=== PATIENT | female | born 1960 | race Caucasian/White ===

== ENCOUNTER → 2022-06-13 14:55 | Outpatient (BNVA) | payer OTHER, SELFPAY | PROVIDERS: PCP Student in an Organized Health Care Education/Training Program; Visit Provider Nurse Practitioner Family | DX: M47.816 Spondylosis without myelopathy or radiculopathy, lumbar region (principal); M54.16 Radiculopathy, lumbar region; M53.3 Sacrococcygeal disorders, not elsewhere classified; M54.6 Pain in thoracic spine; M79.7 Fibromyalgia; G89.4 Chronic pain syndrome | CPT/HCPCS: 99202 ==

== ENCOUNTER 2022-06-22 14:56 | Outpatient (REF) | payer OTHER, SELFPAY ==
--- NOTE | ~2022-06-22 | XR_ITS ---
EXAMINATION: XR THORACIC SPINE CLINICAL INFORMATION: Thoracic spine pain. COMPARISON: None TECHNIQUE: Frontal, lateral and swimmer's views of the thoracic spine were obtained. FINDINGS: Vertebral body heights are normal. There is a mild thoracolumbar dextroscoliosis. The thoracic disc spaces are well-maintained. No acute fracture or spondylolisthesis is seen. There is multi-level mild thoracic spondylosis. The posterior elements are intact. The paravertebral soft tissues are unremarkable. XR/XR sacroiliac joint min 3V IMPRESSION: 1. There is a mild thoracolumbar levoscoliosis. 2. The thoracic disc spaces are well-maintained. 3. There is multi-level mild thoracic spondylosis. EXAMINATION: XR LUMBOSACRAL SPINE CLINICAL INFORMATION: Lumbar spondylosis without myelopathy or radiculopathy. COMPARISON: None TECHNIQUE: AP, bilateral oblique and lateral views of the lumbar spine were obtained, together with a spot lateral view the lumbosacral junction. Lateral views were obtained in flexion, extension, and neutral positions. FINDINGS: Vertebral body heights are normal. At L5-S1, there is a 1.4 cm anterolisthesis, which is stable with flexion or extension. There is a bilateral L5 spondylolysis defect. The remaining disc spaces are well-maintained. The paravertebral soft tissues are unremarkable. IMPRESSION: At L5-S1, there is a 1.4 cm, grade 1 anterolisthesis, and a bilateral L5 spondylolysis defect is seen. EXAMINATION: XR SACROILIAC JOINTS CLINICAL INFORMATION: Sacrococcygeal disorders, not elsewhere classified. COMPARISON: None TECHNIQUE: AP and bilateral Judet views of the sacroiliac joints FINDINGS: Bones and soft tissues are normal. No fracture. Alignment is anatomic. Sacroiliac joint spaces are well-maintained without erosions or surrounding sclerosis. IMPRESSION: Normal sacroiliac joints.
--- NOTE | ~2022-06-22 | XR_ITS ---
EXAMINATION: XR THORACIC SPINE CLINICAL INFORMATION: Thoracic spine pain. COMPARISON: None TECHNIQUE: Frontal, lateral and swimmer's views of the thoracic spine were obtained. FINDINGS: Vertebral body heights are normal. There is a mild thoracolumbar dextroscoliosis. The thoracic disc spaces are well-maintained. No acute fracture or spondylolisthesis is seen. There is multi-level mild thoracic spondylosis. The posterior elements are intact. The paravertebral soft tissues are unremarkable. XR/XR thoracic spine 2V IMPRESSION: 1. There is a mild thoracolumbar levoscoliosis. 2. The thoracic disc spaces are well-maintained. 3. There is multi-level mild thoracic spondylosis. EXAMINATION: XR LUMBOSACRAL SPINE CLINICAL INFORMATION: Lumbar spondylosis without myelopathy or radiculopathy. COMPARISON: None TECHNIQUE: AP, bilateral oblique and lateral views of the lumbar spine were obtained, together with a spot lateral view the lumbosacral junction. Lateral views were obtained in flexion, extension, and neutral positions. FINDINGS: Vertebral body heights are normal. At L5-S1, there is a 1.4 cm anterolisthesis, which is stable with flexion or extension. There is a bilateral L5 spondylolysis defect. The remaining disc spaces are well-maintained. The paravertebral soft tissues are unremarkable. IMPRESSION: At L5-S1, there is a 1.4 cm, grade 1 anterolisthesis, and a bilateral L5 spondylolysis defect is seen. EXAMINATION: XR SACROILIAC JOINTS CLINICAL INFORMATION: Sacrococcygeal disorders, not elsewhere classified. COMPARISON: None TECHNIQUE: AP and bilateral Judet views of the sacroiliac joints FINDINGS: Bones and soft tissues are normal. No fracture. Alignment is anatomic. Sacroiliac joint spaces are well-maintained without erosions or surrounding sclerosis. IMPRESSION: Normal sacroiliac joints.
--- NOTE | ~2022-06-22 | XR_ITS ---
EXAMINATION: XR THORACIC SPINE CLINICAL INFORMATION: Thoracic spine pain. COMPARISON: None TECHNIQUE: Frontal, lateral and swimmer's views of the thoracic spine were obtained. FINDINGS: Vertebral body heights are normal. There is a mild thoracolumbar dextroscoliosis. The thoracic disc spaces are well-maintained. No acute fracture or spondylolisthesis is seen. There is multi-level mild thoracic spondylosis. The posterior elements are intact. The paravertebral soft tissues are unremarkable. XR/XR lumbar spine 6V w bending IMPRESSION: 1. There is a mild thoracolumbar levoscoliosis. 2. The thoracic disc spaces are well-maintained. 3. There is multi-level mild thoracic spondylosis. EXAMINATION: XR LUMBOSACRAL SPINE CLINICAL INFORMATION: Lumbar spondylosis without myelopathy or radiculopathy. COMPARISON: None TECHNIQUE: AP, bilateral oblique and lateral views of the lumbar spine were obtained, together with a spot lateral view the lumbosacral junction. Lateral views were obtained in flexion, extension, and neutral positions. FINDINGS: Vertebral body heights are normal. At L5-S1, there is a 1.4 cm anterolisthesis, which is stable with flexion or extension. There is a bilateral L5 spondylolysis defect. The remaining disc spaces are well-maintained. The paravertebral soft tissues are unremarkable. IMPRESSION: At L5-S1, there is a 1.4 cm, grade 1 anterolisthesis, and a bilateral L5 spondylolysis defect is seen. EXAMINATION: XR SACROILIAC JOINTS CLINICAL INFORMATION: Sacrococcygeal disorders, not elsewhere classified. COMPARISON: None TECHNIQUE: AP and bilateral Judet views of the sacroiliac joints FINDINGS: Bones and soft tissues are normal. No fracture. Alignment is anatomic. Sacroiliac joint spaces are well-maintained without erosions or surrounding sclerosis. IMPRESSION: Normal sacroiliac joints.
== END 2022-06-22 14:57 | disposition home or self-care (01) ==
LOC: HO.XRAY 14:56
PROVIDERS: Visit Provider Nurse Practitioner Family
DX: M53.3 Sacrococcygeal disorders, not elsewhere classified (principal); M54.6 Pain in thoracic spine; M47.816 Spondylosis without myelopathy or radiculopathy, lumbar region; G89.4 Chronic pain syndrome; M54.16 Radiculopathy, lumbar region
CPT/HCPCS: 72070; 72114; 72202

== ENCOUNTER → 2022-07-14 14:34 | Outpatient (BNVA) | payer OTHER, SELFPAY | PROVIDERS: PCP Student in an Organized Health Care Education/Training Program; Visit Provider Nurse Practitioner Family | DX: Z13.89 Encounter for screening for other disorder (principal) ==

== ENCOUNTER → 2022-09-14 14:50 | Outpatient (BNVA) | payer OTHER, SELFPAY | PROVIDERS: PCP Student in an Organized Health Care Education/Training Program; Visit Provider Nurse Practitioner Family | DX: M79.7 Fibromyalgia (principal); M47.816 Spondylosis without myelopathy or radiculopathy, lumbar region; G89.4 Chronic pain syndrome; M54.6 Pain in thoracic spine; M53.3 Sacrococcygeal disorders, not elsewhere classified | CPT/HCPCS: 99212 ==

== ENCOUNTER 2024-04-29 14:09 | Outpatient (AMB) | payer OTHER, SELFPAY ==
[2024-04-29 14:11] VITALS: BP 118/78; PULSE 73; O2SAT 98; BMI 20.8
--- NOTE | 2024-04-29 14:11 | MHC.OFFVIS ---
Vital Signs 04/29/24 14:11 Height 4 ft 11 in Weight 103 lb 2.821 oz BMI 20.8 BP 118/78 Blood Pressure Location Lt brachial Position Sitting Pulse 73 Pulse Source Pulse Oximeter Pulse Oximetry (%) 98 Oxygen Delivery Method Room Air Intake Visit Reasons: DJD/CM APT Intake Note: Patient presents with DJD, externally referred by PCP Nishant Baptiste MD. Patient states right arm pain which travels down arm and back, she states it started on Sunday, painful when she touches or reaches for things, she also states that she has been losing sleep due to the pain. She is also complaining of joint pain in her hips. Patient is requesting a letter for home healthcare, because her hours were cut. 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 Has seen several doctors and bili evaluated many times. Ultimately told that she has fibromyalgia. She also has osteoarthritis involving her knees, hands and now she is concerned that they involve her shoulders. She reports bilateral shoulder pain right worse than left with the right worsening over the past several months. She states that she feels that her pain is slowly getting worse to the point where she can not do anything and she can not perform her ADLs. Denies rashes, photosensitivity, alopecia, oral/nasal ulcers, sicca symptoms, lymphadenopathy, chest pain/shortness of breath,foamy urine, lower extremity edema, muscle weakness, Raynaud's Also denies history of seizure, CVA, psychosis, history of kidney problems, history of cytopenias, history of VTE including PE or DVTs [facility] Medical History (Updated 04/29/24 @ 15:44 by Iris Reza MD) Shoulder pain, bilateral Kidney stones Hyperglobulinemia Dysphagia IgG monoclonal gammopathy Fibromyalgia GERD (gastroesophageal reflux disease) Hypothyroidism Vitamin D deficiency Osteoporosis Anemia Review of Systems Const Details: Review of Systems Constitutional: Denies fever, chills, weight loss ENT: Denies vision changes, eye pain or eye redness, dental caries, dry mouth GI: Denies nausea, vomiting, diarrhea, abdominal pain, change in BM Pulm: Denies SOB, ALATORRE, hemoptysis, wheezing Cards: Denies chest pain, palpitations Skin: Denies Raynaud's, rash, nail changes, photosensitivity, 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 Well appearing and in no apparent painful distress CHEST/RESPIRATORY SYSTEM Normal respiratory effort and able to speak in complete sentences. ?Clear to auscultation bilaterally. CARDIAC SYSTEM Regular rate and rhythm. ?S1 and S2 heard no murmurs. 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 ?Heberden's nodes noted throughout bilateral hands affecting the DIPs. ?No synovitis noted to the MCPs, PIPs or DIPs. ?No tenderness to palpation of these joints. Surgical scar noted in the palm of the right hand as well as over the right flexor tendon of the 1st compartment. Wrists: ?Full range of motion at the wrists without pain. ?No tenderness to palpation or synovitis noted to the wrists. Elbows: Full range of motion without pain. No tenderness, weakness, swelling, increased warmth or erythema. Shoulders: Decreased range of motion on the right shoulder with tenderness to palpation of the AC joint. Tenderness to palpation of the AC joint on the left as well but more so on the right. Better range of motion on the left. Hips: Full range of motion without pain. Hip bursa: Tenderness to palpation bilaterally Knees: ?Full range of motion. ?No tenderness, swelling, increased warmth or erythema.? Bilateral crepitations noted. Ankles: Full range of motion. ?No tenderness, swelling, increased warmth or erythema.? Feet: ?Negative squeeze test. ?No tenderness to palpation or swelling of the MTPs. Tender points:??Tenderness to palpation of the trapezius muscles the lower back, outer hip, outer knees. SKIN Skin intact without rashes. Assessment & Plan Assessment & Plan (1) Fibromyalgia: Code(s): M79.7 - Fibromyalgia Category: Medical Plan: #Fibromyalgia Patient's exam and history consistent with fibromyalgia. Given pamphlet about fibromyalgia discussing what it is as well as exercise stretches for her to do. Had a very long discussion with the patient about the diagnosis of fibromyalgia and what it means and how treatment is a holistic approach. Pharmacologic mendoza we will do gabapentin 400 mg starting twice a day for 2 weeks and then increasing to 3 times a day if tolerated. We will also start milnacipran 25 mg daily with plan to increase to twice a day in 2 weeks. Check blood work including inflammatory markers Follow up in 5 months (2) Shoulder pain, bilateral: Code(s): M25.511 - Pain in right shoulder; M25.512 - Pain in left shoulder Category: Medical Qualifiers: Chronicity: chronic Qualified Code(s): M25.511 - Pain in right shoulder; M25.512 - Pain in left shoulder; G89.29 - Other chronic pain Plan: #Shoulder pain, bilateral right worse than left Patient having bilateral shoulder pain we will check x-rays. Likely patient has osteoarthritis involving her AC joint. Plan I spent 45 minutes reviewing the record and labs, seeing the patient, discussing the treatment plan and documenting in the medical record Orders: Orders Comprehensive Met. Panel Today M79.7 - Fibromyalgia C Reactive Protein Today M79.7 - Fibromyalgia Erythrocyte Sedimentation Rate Today M79.7 - Fibromyalgia XR shoulder LT min 2V Today M25.511 - Pain in right shoulder, M25.512 - Pain in left shoulder, M79.7 - Fibromyalgia XR shoulder RT min 2V Today M25.511 - Pain in right shoulder, M25.512 - Pain in left shoulder, M79.7 - Fibromyalgia Complete Blood Count Auto Diff Today M79.7 - Fibromyalgia Medications: New gabapentin Start with 1 tablet twice a day and increase to 1 tablet 3 times a day if tolerated 400 mg PO TID 270 caps 1RF 90 days M79.7 - Fibromyalgia milnacipran 25 mg PO BID 180 tabs 1RF 90 days M79.7 - Fibromyalgia Coding Level of Care Code New Pt Level 4 (90112) Diagnoses Fibromyalgia M79.7 Chronic pain of both shoulders M25.511; M25.512; G89.29 Chronicity: chronic
== END 2024-04-29 15:06 | disposition home or self-care (01) ==
PROVIDERS: PCP Internal Medicine; Visit Provider Student in an Organized Health Care Education/Training Program
DX: M79.7 Fibromyalgia (principal); M25.511 Pain in right shoulder; M25.512 Pain in left shoulder; G89.29 Other chronic pain
CPT/HCPCS: 99204

== ENCOUNTER → 2024-04-29 14:09 | Outpatient (BNVA) | payer OTHER, SELFPAY | PROVIDERS: PCP Internal Medicine; Visit Provider Student in an Organized Health Care Education/Training Program | DX: M79.7 Fibromyalgia (principal); M25.511 Pain in right shoulder; M25.512 Pain in left shoulder; G89.29 Other chronic pain | CPT/HCPCS: 99202 ==

== ENCOUNTER 2024-07-15 14:12 | Outpatient (REF) | payer OTHER, SELFPAY ==
--- NOTE | ~2024-07-15 | XR_ITS ---
CLINICAL HISTORY: M25.511 - Pain in right shoulder 2 view right shoulder Comparison: None Findings: No fractures or dislocations. [id number] osteoarthritic changes of the AC joint. No erosions. No radiopaque foreign body. IMPRESSION: 1. No acute findings This document has been electronically signed by: Indra Gross MD on 07/16/2024 01:22:40
--- NOTE | ~2024-07-15 | XR_ITS ---
CLINICAL HISTORY: M25.50 - Pain in unspecified joint 3 view left hand, 4 view left wrist Comparison: None Findings: Bones intact. No dislocations. Mildly diffuse osteoarthritic changes throughout the IP joints. No erosions. No radiopaque foreign body. Mildly diffuse soft tissue swelling. IMPRESSION: 1. No acute fracture This document has been electronically signed by: Indra Gross MD on 07/16/2024 02:44:30
--- NOTE | ~2024-07-15 | XR_ITS ---
CLINICAL HISTORY: M25.50 - Pain in unspecified joint 4 view right hand Comparison: None Findings: Chronic ulnar styloid avulsion fracture with well corticated margins. No acute fracture. No significant arthritic change. No erosions. No radiopaque foreign body. Mildly diffuse soft tissue swelling. IMPRESSION: No acute fracture. This document has been electronically signed by: Indra Gross MD on 07/16/2024 01:22:43
--- NOTE | ~2024-07-15 | XR_ITS ---
CLINICAL HISTORY: M25.511 - Pain in right shoulder 2 view left shoulder Comparison: None Findings: Bones intact. No dislocations. Mild osteoarthritic changes of the AC joint. No erosions. No radiopaque foreign body. IMPRESSION: 1. No acute findings This document has been electronically signed by: Indra Gross MD on 07/16/2024 01:28:17
[2024-07-15 14:29] LABS: MANUAL DIFF FLAG NO
--- OUTSIDE RECORDS SUMMARY | 2024-07-15 15:10 | XMS_ITS | Encounter Summary ---
Author Organization [facility] Address [address] [place] [address] Care Team Providers Care Latex Fashions Designer Name Role Phone Jody Payne MD Primary Care Provider [phone] Reason for Referral * Imaging (Routine) - Authorized Specialty Diagnoses / Procedures Referred By Contac t Referred To Contact Radiology Diagnoses Breast cancer screening by mammogram Procedures MG Mammo Digital Screening bilat Jody Payne MD [address] [address] Phone: tel: fax: [address] [phone] Phone: tel: Referral ID Status Reason Start Date Expiration Date V isits Requested Visits Authorized [id number] Authorized 06/26/2024 06/26/2025 1 1 Reason for Visit * Reason Comments Follow-up Encounter Details Date Type Department Care Team ([facility] st Contact Info) Description 06/26/2024 11:30 AM EST Office Visit Internal Medicine - [place] [facility] [address] [phone] Jody Payne MD [address] [phone] Anemia, unspecified type (Primary Dx); Hypothyroidism due to acquired atrophy of thyroid; Breast cancer screening by mammogram; Vitamin D deficiency; Vitamin B12 deficiency Social History Tobacco Use Types Packs/Day Years Used Date Smoking Tobacco: Former Cigarettes Q uit: 06/12/1988 Smokeless Tobacco: Never Tobacco Cessation:Counseling Given: Not Answered Alcohol Use Standard Drinks/Week Comments No 0 (1 standard drink = 0.6 oz pur e alcohol) Comments Unknown Sex and Gender Information Value Date Recorded Sex Assigned at Not on file Legal Sex Female 5:01 AM EST Gender Identity Not on file Sexual Orientation Not on file documented as of this encounter Last Filed Vital Signs Vital Sign Reading Time Taken Comments Blood Pressure 110/74 06/26/2024 11:36 AM EST Pulse 65 06/26/2024 11:36 AM EST Temperature 36.6 ??C (97.8 ??F) 06/26/2024 11:[address] Respiratory Rate - - Oxygen Saturation 99% 06/26/2024 11:36 AM EST Inhaled Oxygen Concentration - - Weight 45.4 kg (100 lb) 06/26/2024 11:36 AM EST Height - - Body Mass Index 20.2 04/22/2024 9:42 AM EST documented in this encounter Ordered Prescriptions Prescription Sig Dispense Quantity Refills Last Filled Start Date End Date levothyroxine (SYNTHROID, LEVOTHROID) 50 mcg tablet Take 1 tablet (50 mcg total) by mouth 1 (one) time each day. 90 each 06/28/2024 cyanocobalamin 2,000 mcg tablet Take 1 tablet (2,000 mcg total) by mouth 1 (one) time per week. 12 tablet 2 06/28/2024 ferrous sulfate 325 mg (65 mg iron) EC tablet Take 1 tablet (325 mg total) by mouth every other day. Do not crush, chew, or split. 45 each 06/28/2024 cholecalciferol (Vitamin D3) 50 mcg (2,000 unit) tablet Take 1 tablet (2,000 Units total) by mouth 1 (one) time each day. 90 tablet 2 06/28/2024 cyanocobalamin 2,000 mcg tablet Take 1 tablet (2,000 mcg total) by mouth 1 (one) time per week. 12 tablet 2 06/26/2024 ferrous sulfate 325 mg (65 mg iron) EC tablet Take 1 tablet (325 mg total) by mouth every other day. Do not crush, chew, or split. 45 each 2 06/26/2024 cholecalciferol (Vitamin D3) 50 mcg (2,000 unit) tablet Take 1 tablet (2,000 Units total) by mouth 1 (one) time each day. 90 tablet 2 06/26/2024 documented in this encounter Progress Notes * Jody Payne MD - 06/26/2024 11:30 AM ESTAddended by: JODY PAYNE on: 06/28/2024 01:06 PM Modules accepted: Orders * Jody Payne MD - 06/26/2024 11:30 AM EST CHIEF COMPLAINT: Follow-up IDENTIFIER: Nii Jaffe is a 64 y.o. old female. HPI: Hypothyroidism, chronic low back pain,GERD. she is disabled- not clear about her diagnosis. Lives with her grand daughter. Has not driven in over 10yrs. 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 She is independent with ADLs. Former smoker Used to be on controlled substance contract for Percocet 5 mg every 12 hours, not anymore Patient was recently referred to rheumatology in [place], had first evaluation, had the x-rays and labs done but she never went back, she has transportation issues. ROS: GENERAL: No malaise, significant weight loss or fever NECK: No lumps, goiter, pain or significant neck swelling RESPIRATORY: No cough, wheezing or shortness of breath CARDIOVASCULAR: No chest pain, leg swelling or palpitations GI: No abdominal discomfort, blood in stools or black stools PSYCH: No sleep disturbance, mood disorder or recent psychosocial stressors. PAST MEDICAL HISTORY: Patient Active Problem List Diagnosis Date Noted Vitamin B12 deficiency 06/26/2024 Nausea 04/22/2024 Helicobacter pylori gastritis 04/22/2024 Anemia 03/20/2024 Arthritis 03/20/2024 Osteoporosis 03/20/2024 Pain in both knees 10/22/2023 IgG monoclonal gammopathy 01/20/2021 Fibromyalgia 04/26/2020 Dysphagia 02/06/2019 Hyperglobulinemia 02/08/2018 Osteoarthritis of spine with radiculopathy, lumbar region 01/31/2018 Other spondylosis with radiculopathy, lumbar region 01/31/2018 GERD (gastroesophageal reflux disease) 04/06/2014 Hypothyroidism 09/30/2012 Vitamin D insufficiency 06/26/2011 Past Surgical History: Procedure Laterality Date KIDNEY STONE SURGERY 2010 PROCEDURE: OR NEPHROLITHOTOMY REMOVAL CALCULUS LIPOMA RESECTION 2012 PROCEDURE: SKIN TISSUE EXCISION(LIPOMA) WRIST SURGERY Right PROCEDURE: HISTORICAL WRIST SURGERY SOCIAL HISTORY: Social History Tobacco Use Smoking status: Former Current packs/day: 0.00 Types: Cigarettes Quit date: 06/12/1988 Years since quittin.0 Smokeless tobacco: Never Substance Use Topics Alcohol use: No FAMILY HISTORY: Family History Problem Relation Name Age of Onset Stroke Mother at 69; arthritis Other cancer Mother Heart attack Father ?CABG; age not known to pt Rheum arthritis Sister 42 Prostate cancer Brother ? patient says unsure of this - 03/06/2017 Other (Other: heart problem) Sister at 14, ? due to heart problem Other cancer Sister at the age of 45yrs, had metastatic cancer with lupus Arthritis Sister RA Diabetes Brother Asthma Other Family Status Relation Name Status Mother Father Alive Sister 42 Brother (Not Specified) Sister (Not Specified) Sister (Not Specified) Brother (Not Specified) Other (Not Specified) Daughter Alive Son Alive Son Alive No partnership data on file MEDICATIONS DISCONTINUED/REORDERED: There are no discontinued medications. ACTIVE MEDICATIONS: Outpatient Medications Marked as Taking for the 06/26/24 encounter (Office Visit) with Jody Payne MD Medication Sig Dispense Refill clotrimazole-betamethasone (LOTRISONE) 1-0.05 % cream Apply twice a day on the rash for 10 days gabapentin (NEURONTIN) 100 mg capsule Take 2 capsules (200 mg total) by mouth 2 (two) times a day. 120 capsule 1 levothyroxine (SYNTHROID, LEVOTHROID) 75 mcg tablet TAKE ONE TABLET BY MOUTH EVERY DAY 90 tablet 0 omeprazole (PriLOSEC) [address] capsule Take 1 Capsule by mouth daily. ondansetron (ZOFRAN) 8 mg tablet Take 1 tablet (8 mg total) by mouth every 8 (eight) hours if needed for nausea or vomiting. 50 tablet 2 ALLERGIES: No Known Allergies PHYSICAL EXAM: Visit Vitals BP 110/74 (BP Location: Left arm, Patient Position: Sitting, BP Cuff Size: Large adult) Pulse 65 Temp 36.6 ??C (97.8 ??F) (Temporal) Wt (!) 45.4 kg (100 lb) SpO2 99% BMI 20.20 kg/m?? Smoking Status Former BSA 1.37 m?? APPEARANCE: Alert and in no acute distress NECK: Neck supple, no adenopathy, thyroid symmetric and of normal size HEART: RRR with normal S1 and S2, no murmurs, no gallops, no JVD appreciated LUNG: clear to auscultation ABDOMEN: Bowel sounds normoactive, no bruits, soft, non-tender, without organomegaly or palpable masses SKIN: Skin color, texture, turgor normal. No rashes or lesions. LABS/IMAGING: Appointment on 06/17/2024 Component Date Value Ref Range Status H Pylori Breath Test 06/17/2024 Negative Negative Final Abstract on 03/20/2024 Component Date Value Ref Range Status Hepatitis C Screening 01/31/2018 abstracted Final Depression Screening 02/22/2024 abstracted Final Annual BMP Blood Test 07/24/2023 abstracted Final Urine Albumin Creatinine Ratio 01/29/2020 abstracted Final LDL/HDL Ratio 05/21/2023 5 (A) 0 - 4 Final Triglycerides 05/21/2023 160 mg/dL Final Cholesterol 05/21/2023 214 (A) 0 - 200 mg/dL Final HDL 05/21/2023 46 40 mg/dL Final LDL Cholesterol 05/21/2023 136 (A) 0 - 100 mg/dL Final Hemoglobin A1C 05/31/2022 6.0 6.5 % Final Medication and lab orders: Orders Placed This Encounter Procedures MG Mammo Digital Screening bilat Comprehensive metabolic panel Lipid panel with reflex to direct LDL Complete blood count Thyroid stimulating hormone Vitamin B12 Vitamin D 25 hydroxy Other orders: MG MAMMO DIGITAL SCREENING BILAT IMPRESSION: 1. Anemia, unspecified type 2. Hypothyroidism due to acquired atrophy of thyroid 3. Breast cancer screening by mammogram 4. Vitamin D deficiency 5. Vitamin B12 deficiency PLAN: Hypothyroid- taking levothyroixine 75mcg daily, TSH in jul was normal. Denies any heat/cold intolerance. Chronic pain/polyarthralgia- taking gabapentin 100mg QID prn ( but taking 3 day) , used to be on Percocet not anymore, was recently referred to rheumatology, had a first visit and also imaging and labs, she never followed up, I highly encouraged her to give a call back to the special education case manager and schedule an appointment for follow-up. Vitamin B12 and vitamin D deficiency--continue the supplement Anemia--will order iron supplement GERD- taking omeprazole 20mg as needed. EGD in 2023 was normal. Following gastroenterology Labs including CBC CMP lipid A1c TSH vitamin B12 vitamin D ordered Referral to mammogram placed Will follow-up in 6 months or sooner as needed Jody Payne MD on 06/26/2024 at 12:08 PM EST documented in this encounter Plan of Treatment Upcoming Encounters Date Type Department Care Team (Late st Contact Info) Description 08/19/2024 1:30 PM EDT Appointment [facility] Endoscopy [address] [place] [phone] Blaise Yousif DO [address] [address] 12/24/2024 2:30 PM EDT Office Visit Internal Medicine - [facility] [address] [phone] Jody Payne MD [address] [phone] Scheduled Orders Name Type Priority Associated Diagnoses Orde r Schedule MG Mammo Digital Screening bilat Imaging Routine Breast cancer screening by mammogram 1 Occurrences starting 06/26/2024 until 06/26/2025 documented as of this encounter Results * (ABNORMAL) Vitamin D 25 hydroxy (06/26/2024 12:07 PM EST) Vit D, 25-Hydroxy 19.4(L) 30.0 - 80.0 ng/mL LAB CHEMISTRY METHOD 06/26/2024 2:52 PM EST [facility] Blood Venous blood specimen / Unknown Venipuncture / Unknown 06/26/2024 12:07 PM EST 06/26/2024 12:07 PM EST Jody Payne MD LAB BLOOD ORDERABLES Final Res ult [facility] [address] [place] [address], [place] [phone] * (ABNORMAL) Vitamin B12 (06/26/2024 12:07 PM EST) Pathologist [facility] Vitamin B-12 201(L) 250 - 900 pcg/mL LAB CHEMISTRY METHOD 06/26/2024 3:14 PM EST [facility] Blood Venous blood specimen / Unknown Venipuncture / Unknown 06/26/2024 12:07 PM EST 06/26/2024 12:07 PM EST Jody Payne MD LAB BLOOD ORDERABLES Final Res ult Performing Organization Address City/[facility]/ZIP Co de Phone Number [facility] [address] [place] [address], [place] [phone] * (ABNORMAL) Thyroid stimulating hormone (06/26/2024 12:07 PM EST) [facility] TSH <0.05(L) 0.40 - 4.00 mcIU/mL LAB CHEMISTRY METHOD 06/26/2024 2:52 PM EST [facility] Blood Venous blood specimen / Unknown Venipuncture / Unknown 06/26/2024 12:07 PM EST 06/26/2024 12:07 PM EST Jody Payne MD LAB BLOOD ORDERABLES Final Res ult [facility] [address] [place] [address], [place] [phone] * (ABNORMAL) Complete blood count (06/26/2024 12:07 PM EST) WBC 7.1 4.8 - 10.8 K/mcL LAB HEMETOLOGY METHOD 06/26/2024 2:14 PM [facility] RBC 3.80 3.80 - 4.80 M/mcL LAB HEMETOLOGY METHOD 06/26/2024 2:14 PM [facility] Hemoglobin 11.0(L) 11.5 - 16.0 g/dL LAB HEMETOLOGY METHOD 06/26/2024 2:14 PM [facility] Hematocrit 33.7(L) 35.0 - 47.0 % LAB HEMETOLOGY METHOD 06/26/2024 2:14 PM [facility] MCV 88.9 79.0 - 98.0 FL LAB HEMETOLOGY METHOD 06/26/2024 2:14 PM [facility] MCH 29.0 27.0 - 32.0 pcg LAB HEMETOLOGY METHOD 06/26/2024 2:14 PM [facility] MCHC 32.6 32.0 - 37.0 g/dL LAB HEMETOLOGY METHOD 06/26/2024 2:14 PM [facility] RDW 13.3 11.0 - 15.0 % LAB HEMETOLOGY METHOD 06/26/2024 2:14 PM [facility] Platelets 369 130 - 400 K/mcL LAB HEMETOLOGY METHOD 06/26/2024 2:14 PM [facility] MPV 10.2 7.0 - 11.0 FL LAB HEMETOLOGY METHOD 06/26/2024 2:14 PM [facility] NRBC 0.0 <1.0 % LAB HEMETOLOGY METHOD 06/26/2024 2:14 PM [facility] NRBC Absolute 0.00 <0.10 K/mcL LAB HEMETOLOGY METHOD 06/26/2024 2:14 PM [facility] Blood Venous blood specimen / Unknown Venipuncture / Unknown 06/26/2024 12:07 PM EST 06/26/2024 12:07 PM EST us Jody Payne MD LAB BLOOD ORDERABLES Final Res ult [facility] [address] [place] [address], [place] [phone] * (ABNORMAL) Lipid panel with reflex to direct LDL (06/26/2024 12:07 PM EST) Cholesterol 174 0 - 200 mg/dL LAB CHEMISTRY METHOD 06/26/2024 3:14 PM EST [facility] Triglycerides 126 0 - 150 mg/dL LAB CHEMISTRY METHOD 06/26/2024 3:14 PM EST [facility] HDL 44 >=40 mg/dL LAB CHEMISTRY METHOD 06/26/2024 3:14 PM EST [facility] LDL Calculated 105(H) 0 - 100 mg/dL LAB CHEMISTRY METHOD 06/26/2024 3:14 PM EST [facility] VLDL Cholesterol Benja 25.2 mg/dL LAB CHEMISTRY METHOD 06/26/2024 3:14 PM EST [facility] Non HDL Chol. (LDL+VLDL) 130 <145 mg/dL LAB CHEMISTRY METHOD 06/26/2024 3:14 PM EST [facility] Chol/HDL Ratio 4.0 0.0 - 4.4 LAB CHEMISTRY METHOD 06/26/2024 3:14 PM EST [facility] Blood Venous blood specimen / Unknown Venipuncture / Unknown 06/26/2024 12:07 PM EST 06/26/2024 12:07 PM EST us Jody Payne MD LAB BLOOD ORDERABLES Final Res ult [facility] [address] [place] [address], [place] [phone] * (ABNORMAL) Comprehensive metabolic panel (06/26/2024 12:07 PM EST) Sodium 137 133 - 145 mmol/L LAB CHEMISTRY METHOD 06/26/2024 3:14 PM [facility] Potassium 4.1 3.5 - 5.5 mmol/L LAB CHEMISTRY METHOD 06/26/2024 3:14 PM [facility] Chloride 105 96 - 110 mmol/L LAB CHEMISTRY METHOD 06/26/2024 3:14 PM [facility] CO2 30 21 - 32 mmol/L LAB CHEMISTRY METHOD 06/26/2024 3:14 PM [facility] Anion Gap 2(L) 3 - 11 LAB CHEMISTRY METHOD 06/26/2024 3:14 PM [facility] Glucose 89 70 - 100 mg/dL LAB CHEMISTRY METHOD 06/26/2024 3:14 PM [facility] BUN 8 5 - 25 mg/dL LAB CHEMISTRY METHOD 06/26/2024 3:14 PM [facility] Creatinine 0.48(L) 0.50 - 1.10 mg/dL LAB CHEMISTRY METHOD 06/26/2024 3:14 PM [facility] eGFR 107 >=60 mL/min/1. 73m2 LAB CHEMISTRY METHOD 06/26/2024 3:14 PM [facility] Comment:Calculation based on the??Chronic Kidney Disease Epidemiology Collaboration (CKD-EPI) equation refit??without adjustment for race. BUN/Creatinine Ratio 16.7 LAB CHEMISTRY METHOD 06/26/2024 3:14 PM [facility] Calcium 9.0 8.5 - 10.5 mg/dL LAB CHEMISTRY METHOD 06/26/2024 3:14 PM [facility] AST (SGOT) 19 10 - 42 unit/L LAB CHEMISTRY METHOD 06/26/2024 3:14 PM [facility] ALT (SGPT) 17 10 - 60 unit/L LAB CHEMISTRY METHOD 06/26/2024 3:14 PM [facility] Alkaline Phosphatase 65 42 - 121 unit/L LAB CHEMISTRY METHOD 06/26/2024 3:14 PM EST [facility] Total Protein 8.1(H) 6.0 - 8.0 g/dL LAB CHEMISTRY METHOD 06/26/2024 3:14 PM EST [facility] Albumin 3.8 3.2 - 5.0 g/dL LAB CHEMISTRY METHOD 06/26/2024 3:14 PM [facility] Total Bilirubin 0.3 0.0 - 1.4 mg/dL LAB CHEMISTRY METHOD 06/26/2024 3:14 PM [facility] Blood Venous blood specimen / Unknown Venipuncture / Unknown 06/26/2024 12:07 PM EST 06/26/2024 12:07 PM EST us Jody Payne MD LAB BLOOD ORDERABLES Final Res ult [facility] [address] [place] [address], documented in this encounter Visit Diagnoses Diagnosis Anemia, unspecified type- Primary Hypothyroidism due to acquired atrophy of thyroid Breast cancer screening by mammogram Vitamin D deficiency Vitamin B12 deficiency Other B-complex deficiencies documented in this encounter Care Teams Latex Fashions Designer Relationship Specialty Start Date End Date Jody Payne MD [address] [phone] PCP - General 03/11/24 documented as of this encounter
--- OUTSIDE RECORDS SUMMARY | 2024-07-15 15:10 | XMS_ITS | Encounter Summary ---
Author Organization [facility] Address [address] [place] [address] Care Team Providers Care Sales Activity Manager Name Role Phone Jdoy Payne MD Primary Care Provider [phone] Reason for Visit * Reason Onset Date Comments PT-1 07/08/2024 Encounter Details Date Type Department Care Team (Late st Contact Info) Description 07/08/2024 Telephone Internal Medicine - [place] [address] [place] [phone] Jody Payne MD [address] [place] [phone] PT-1 Social History Tobacco Use Types Packs/Day Years Used Date Smoking Tobacco: Former Cigarettes Q uit: 06/12/1988 Smokeless Tobacco: Never Alcohol Use Standard Drinks/Week Comments No 0 (1 standard drink = 0.6 oz pur e alcohol) Comments Unknown Sex and Gender Information Value Date Recorded Sex Assigned at Not on file Legal Sex Female 5:01 AM EST Gender Identity Not on file Sexual Orientation Not on file documented as of this encounter Progress Notes * Anna Jaquez MA - 07/08/2024 2:24 PM EST Submitted * Amanda Bryant - 07/08/2024 2:03 PM EST Images from the original note were not included. [employer] new provider or submitter number is [id number] Verify and document patients [place] Health insurance ID # (NOT [facility] ID): [id number] Payor: COMMERCIAL INSURANCE / Plan: COMMERCIAL INSURANCE / Product Type: OTHER Patient mailing address: [address] [facility] [address] Telephone Information: Work Phone Not on file. Pt. demographics verified? YES If not accurate, update registration. Is this a NEW request or a RENEWAL? RENEWAL, her old will 07/12/24 Name of treating facility: [facility] Name (first & last) of treating provider? required : KIARA WEI, OD - NPI #[id number] What is the medical reason why the patient is seeing the above provider? Yearly eye exam and checkups regarding blurry vision Address/Zip code for treating provider: [address], [facility] [address] Phone # for treating provider: Is the provider in the [employer] network (do they accept [place])? YES What specialtly is this provider? optometry When is the visit scheduled for? Will schedule when renewal of PT is submitted How often you will be seeing this particular provider? 4 times a year Do you have friends or family who can transport you to this visit? No If yes, do not complete request. Is there anything stopping you from using public transportation? If yes, explain. : Yes Is there a medical reason (diagnosis) why you are unable to use public transportation? If yes, explain: Yes, Patient Active Problem List Diagnosis Anemia Arthritis Dysphagia Fibromyalgia GERD (gastroesophageal reflux disease) Hyperglobulinemia Hypothyroidism IgG monoclonal gammopathy Osteoporosis Osteoarthritis of spine with radiculopathy, lumbar region Other spondylosis with radiculopathy, lumbar region Pain in both knees Vitamin D insufficiency Nausea Helicobacter pylori gastritis Vitamin B12 deficiency Does patient carry self-administered oxygen? No Does patient require door through door or room to room service( ex: member cannot ambulate or wait independently outside their home/facility for transportation. No Is this is for an Adult Day Program or Suboxone clinic No If yes to above what is arrival time N/A and what is departure time N/A If yes to above how many days a week? N/A Do you need a wheelchair van? No If you use a wheelchair what is the height, width & length of the wheelchair? N/A Do you need an escort to accompany you? If yes, explain why. No Will you have an alternative pick-up address? No Do you have a service animal? No PT DOES NOT NEED RELEASE OF INFORMATION SIGNED documented in this encounter Plan of Treatment Upcoming Encounters Date Type Department Care Team (Late st Contact Info) Description 08/19/2024 1:30 PM EDT Appointment [facility] Endoscopy [address] [place] [phone] Blaise Yousif DO [address] [phone] 12/24/2024 2:30 PM EDT Office Visit Internal Medicine - [place] [address] [phone] Jody Payne MD [address] [phone] documented as of this encounter Visit Diagnoses Not on filedocumented in this encounter Care Teams Sales Activity Manager Relationship Specialty Start Date End Date Jody Payne MD [address] [phone] PCP - General 03/11/24 documented as of this encounter
--- OUTSIDE RECORDS SUMMARY | 2024-07-15 15:10 | XMS_ITS | Encounter Summary ---
Author Organization [facility] Address [address] [place] [address] Care Team Providers Care Pole Tester Name Role Phone Jody Payne MD Primary Care Provider [phone] Reason for Visit * Reason Onset Date Comments Kerry: Call back 06/30/2024 Encounter Details Date Type Department Care Team (Late st Contact Info) Description 06/30/2024 Telephone Internal Medicine - [place] [address] [place] [phone] Jody Payne MD [address] [place] [phone] Kerry: Call back Social History Tobacco Use Types Packs/Day Years [...] as of this encounter Progress Notes * Jody Payne MD - 07/03/2024 12:36 PM EST I called patient and left a message Please inform the message below to the patient about her lab results Low iron,vit D,and vit B12,supplements sent, Changing the dose of levothyroxine from 75 mcg to 50 mcg depending on her lab results * Priya Barragan MA - 07/01/2024 12:08 PM EST Please result * Kindra Wagoner - 06/30/2024 4:07 PM EST Patient called and requested a call back because she would like the results of her blood work and because she would like to discuss medication she is taking. Please advise Cb# [phone] documented in this encounter Plan of Treatment Upcoming Encounters Date Type Department Care Team (Late st Contact Info) Description 08/19/2024 1:30 PM EDT Appointment [facility] Endoscopy [address] [place] [phone] Blaise Yousif DO [address] [address] 12/24/2024 2:30 PM EDT Office Visit Internal Medicine - [place] [address] [phone] Jody Payne MD [address] [phone] documented as of this encounter Visit Diagnoses Not on filedocumented in this encounter Care Teams Pole Tester Relationship Specialty Start Date End Date Jody Payne MD [address] [phone] PCP - General 03/11/24 documented as of this encounter
--- OUTSIDE RECORDS SUMMARY | 2024-07-15 15:10 | XMS_ITS | Clinical Summary ---
Author Organization [facility] Address [address] [place] [address] Phone Care Team Providers Care Box Tender Name Role Phone Jody Payne MD Primary Care Provider [phone] Allergies No known active allergies Medications clotrimazole-b etamethasone (LOTRISONE) 1-0.05 % cream Apply twice a day on the rash for 10 days 4 Active omeprazole (PriLOSEC) [address] capsule Take 1 Capsule by mouth daily. 4 Active ondansetron (ZOFRAN) 8 mg tablet Take 1 tablet (8 mg total) by mouth every 8 (eight) hours if needed for nausea or vomiting. 50 tablet 2 4 Active levothyroxine (SYNTHROID, LEVOTHROID) 75 mcg tablet TAKE ONE TABLET BY MOUTH EVERY DAY 90 tablet 4 Active cholecalcifero l (Vitamin D3) 50 mcg (2,000 unit) tablet Take 1 tablet (2,000 Units total) by mouth 1 (one) time each day. 90 tablet 2 5 Active ferrous sulfate 325 mg (65 mg iron) EC tablet Take 1 tablet (325 mg total) by mouth every other day. Do not crush, chew, or split. 45 each 2 5 Active cyanocobalamin 2,000 mcg tablet Take 1 tablet (2,000 mcg total) by mouth 1 (one) time per week. 12 tablet 2 5 Active pantoprazole (PROTONIX) 40 mg EC tablet Take 1 tablet (40 mg total) by mouth 1 (one) time each day. Do not crush, chew, or split. 30 each 1 5 026 Active cholecalcifero l (Vitamin D3) 50 mcg (2,000 unit) tablet Take 1 tablet (2,000 Units total) by mouth 1 (one) time each day. 90 tablet 2 5 Active ferrous sulfate 325 mg (65 mg iron) EC tablet Take 1 tablet (325 mg total) by mouth every other day. Do not crush, chew, or split. 45 each 2 5 Active cyanocobalamin 2,000 mcg tablet Take 1 tablet (2,000 mcg total) by mouth 1 (one) time per week. 12 tablet 2 5 Active levothyroxine (SYNTHROID, LEVOTHROID) 50 mcg tablet Take 1 tablet (50 mcg total) by mouth 1 (one) time each day. 90 each 11 5 Active gabapentin (NEURONTIN) 100 mg capsule TAKE TWO CAPSULES BY MOUTH TWICE A DAY 120 capsule 1 5 Active gabapentin (NEURONTIN) 100 mg capsule Take 2 capsules (200 mg total) by mouth 2 (two) times a day. 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 Flory Fibromyalgia 04/26/2020 Dysphagia 02/06/2019 Hyperglobulinemia 02/08/2018 Osteoarthritis of spine with radiculopathy, lumb ar region 01/31/2018 Other spondylosis with radiculopathy, lumbar reg ion 01/31/2018 GERD (gastroesophageal reflux disease) 4 Hypothyroidism 09/30/2012 Vitamin D insufficiency 06/26/2011 Encounters Date Type Department Care Team Description 07/10/2024 Telephone Internal Medicine [address] [phone] Anna Jaquez [place] faxed form ([facility]) 07/08/2024 Telephone Internal Medicine [address] [phone] Jody Payne MD PT-1 06/30/2024 Telephone Internal [address] [phone] Jody Payne MD [place]: Call back 06/26/2024 11:30 AM EST Office Visit Internal Medicine [address] [phone] Jody Payne MD Anemia, unspecified type (Primary Dx); Hypothyroidism due to acquired atrophy of thyroid; Breast cancer screening by mammogram; Vitamin D deficiency; Vitamin B12 deficiency 06/20/2024 Telephone Gastroenterology [address] [phone] Germán Hou MD Results (H pylori breath test) 04/22/2024 9:30 AM EST Office Visit Gastroenterology [address] [phone] Germán Hou MD Anemia, unspecified type (Primary Dx); Nausea; Helicobacter pylori gastritis from Last 3 Months Immunizations Name Administration Dates Next Due Tdap Tetanus diptheria acell ular pertussis (Boostrix; Adacel) 7yo and older 06/12/2011 Surgical History Surgery Date Site/Laterality Comments KIDNEY STONE SURGERY 2010 PROCEDURE: MT NEPHROLITHOTOMY REMOVAL CALCULUS LIPOMA RESECTION 2012 PROCEDURE: SKIN TISSUE EXCISION(LIPOMA) WRIST SURGERY Right PROCEDURE: HISTORICAL WRIST SURGERY Medical History Medical History Date Comments Anemia 2007 DX:Anemia; COMME NT: has hx of transfusion, IV iron at the cancer center; last infusion was almost 2 yrs ago; last visit was 4-5 moonths ago Arthritis DX:Arthritis; CO MMENT: knees, low back Osteoporosis 2010 DX:Osteoporosis; COMMENT: had DEXA done; on Fosamax Subclinical hypothyroidism 2009 DX:Blair bclinical hypothyroidism Hypothyroidism 09/30/2012 DX:Hypothyroidis m Chest pain 01/30/2013 DX:Chest pain GERD (gastroesophageal reflux disease) 04/06/2014 DX:GERD (gastroesophageal reflux disease) Hyperglobulinemia 02/08/2018 DX:Hyperglobul inemia Depression 02/05/2019 DX:Depression IgG monoclonal gammopathy 01/20/2021 DX:IgG monoclonal gammopathy; COMMENT: Followed by Dr. Ruth Family History Medical History Relation Name Comments Prostate cancer Brother 1 ? patient sa ys unsure of this - 03/06/2017 Diabetes Brother 2 Heart attack Father ?CABG; age not known to pt Other cancer Mother Stroke Mother at 69; arthritis Asthma Other Rheum arthritis Sister 1 42 Other: heart problem Sister 2 at 14, ? due to heart problem Arthritis Sister 3 RA Other cancer Sister 3 at the age of 45yrs, had metastatic cancer with lupus Relation Name Status Comments Brother 1 Brother 2 Daughter Alive Father Alive Mother Other Sister 1 42 Sister 2 Sister 3 Son 1 Alive Son 2 Alive Social History Tobacco Use Types Packs/Day Years [...] on file Sexual Orientation Not on file Obstetrics History Para Term AB IAB SAB Ectopic Multiple Livin g Live Births 3 3 Date Outcome GA Total Labor Labor/2nd/3rd Weight Sex Type Anes PTL Lynnette A1 A5 Name Clin Last Filed Vital Signs Vital Sign Reading Time Taken Comments Blood Pressure 110/74 06/26/2024 11:36 AM EST Pulse 65 06/26/2024 11:36 AM EST Temperature 36.6 ??C (97.8 ??F) 06/26/2024 11:[address] Respiratory Rate - - Oxygen Saturation 99% 06/26/2024 11:36 AM EST Inhaled Oxygen Concentration - - Weight 45.4 kg (100 lb) 06/26/2024 11:36 AM EST Height 149.9 cm (4' 11 ) 04/22/2024 9:42 AM EST Body Mass Index 20.2 04/22/2024 9:42 AM EST Plan of Treatment Upcoming Encounters Date Type Department Care Team (Late st Contact Info) Description 08/19/2024 1:30 PM EDT Appointment [facility] Endoscopy [address] [place] [phone] Blaise Yousif DO [address] [address] 12/24/2024 2:30 PM EDT Office Visit Internal Medicine - [place] [address] [phone] Jody Payne MD [address] [phone] Health Maintenance Due Date Last Done Comments Breast Cancer Screening 1961 Cervical Cancer Screening: P ap Smear 1982 Pneumococcal Vaccine: 50+ Years (1 of 1 - PCV) 2011 Zoster Vaccines (1 of 2) 2011 DTaP,Tdap,and Td Vaccines (2 - Td or Tdap) 07/10/2011 06/12/2011 Colorectal Cancer Screening: Stool Based Tests (FOBT/FIT) 05/13/2022 HIV Screening 05/13/2022 Osteoporosis Screening (Bone Density Screening) 05/13/2022 Social Influencers of Health Screening 05/13/2022 COVID-19 Vaccine (1 - 2023-2 5 season) 2024 Influenza Vaccine (#1) 2024 Depression Screening 02/21/2025 02/22/2024 Cholesterol Screening (Lipid Panel) 06/26/2029 06/26/2024, 05/21/2023 RSV Immunization Patients 60 + Years Old (1 - 1-dose 75+ series) 2036 Hepatitis C Screening Completed 01/31/2018 HIB Vaccines Aged Out No longer eligi ble based on patient's age to complete this topic HPV Vaccines Aged Out No longer eligi ble based on patient's age to complete this topic Hepatitis A Vaccines Aged Out No long er eligible based on patient's age to complete this topic Hepatitis B Vaccines Aged Out No long er eligible based on patient's age to complete this topic IPV Vaccines Aged Out No longer eligi ble based on patient's age to complete this topic MMR Vaccines Aged Out No longer eligi ble based on patient's age to complete this topic Meningococcal ACWY Vaccine Aged Out N o longer eligible based on patient's age to complete this topic Meningococcal B Vacine Aged Out No lo nger eligible based on patient's age to complete this topic Pneumococcal Vaccine: Pediatrics (0 to 5 Years) and At-Risk Patients (6 to 64 Years) Aged Out No longer eligible b ased on patient's age to complete this topic RSV Immunization Patients Under 20 months Aged Out No longer eligible b ased on patient's age to complete this topic Varicella Vaccines Aged Out No longer eligible based on patient's age to complete this topic Procedures Procedure Name Priority Date/Time Associated Diagnosis Comments VITAMIN D 25 HYDROXY Routine 06/26/2024 12:07 PM EST Anemia, unspecified type Hypothyroidism due to acquired atrophy of thyroid VITAMIN B12 Routine 06/26/2024 12:07 PM EST Anemia, unspecified type Hypothyroidism due to acquired atrophy of thyroid THYROID STIMULATING HORMONE Routine 06/26/2024 12:07 PM EST Anemia, unspecified type Hypothyroidism due to acquired atrophy of thyroid COMPLETE BLOOD COUNT Routine 06/26/2024 12:07 PM EST Anemia, unspecified type Hypothyroidism due to acquired atrophy of thyroid LIPID PANEL WITH REFLEX TO DIRECT LDL Routine 06/26/2024 12:07 PM EST Anemia, unspecified type Hypothyroidism due to acquired atrophy of thyroid COMPREHENSIVE METABOLIC PANEL Routine 06/26/2024 12:07 PM EST Anemia, unspecified type Hypothyroidism due to acquired atrophy of thyroid HELICOBACTER PYLORI BREATH TEST Routine 06/17/2024 1:28 PM EST Helicobacter pylori gastritis DEPRESSION SCREENING Routine 02/22/2024 HEPATITIS C SCREENING Routine 01/31/2018 from Last 3 Months or Most Recently Relevant to Health Maintenance Results * (ABNORMAL) Lipid panel with reflex to direct LDL (06/26/2024 12:07 PM EST) Cholesterol 174 0 - 200 mg/dL LAB CHEMISTRY METHOD 06/26/2024 3:14 PM EST [facility] Triglycerides 126 0 - 150 mg/dL LAB CHEMISTRY METHOD 06/26/2024 3:14 PM EST [facility] HDL 44 >=40 mg/dL LAB CHEMISTRY METHOD 06/26/2024 3:14 PM EST [facility] LDL Calculated 105(H) 0 - 100 mg/dL LAB CHEMISTRY METHOD 06/26/2024 3:14 PM EST [facility] VLDL Cholesterol Benja 25.2 mg/dL LAB CHEMISTRY METHOD 06/26/2024 3:14 PM EST [facility] Non HDL Chol. (LDL+VLDL) 130 <145 mg/dL LAB CHEMISTRY METHOD 06/26/2024 3:14 PM EST [facility] Chol/HDL Ratio 4.0 0.0 - 4.4 LAB CHEMISTRY METHOD 06/26/2024 3:14 PM EST [facility] Blood Venous blood specimen / Unknown Venipuncture / Unknown 06/26/2024 12:07 PM EST 06/26/2024 12:07 PM EST us Jody Payne MD LAB BLOOD ORDERABLES Final Res ult [facility] [address] [place] [address], [place] [phone] * (ABNORMAL) Vitamin D 25 hydroxy (06/26/2024 12:07 PM EST) [facility] Vit D, 25-Hydroxy 19.4(L) 30.0 - 80.0 ng/mL LAB CHEMISTRY METHOD 06/26/2024 2:[address] [facility] Blood Venous blood specimen / Unknown Venipuncture / Unknown 06/26/2024 12:07 PM EST 06/26/2024 12:07 PM EST us Jody Payne MD LAB BLOOD ORDERABLES Final Res ult [facility] [address] [place] [address], [place] [phone] * (ABNORMAL) Complete blood count (06/26/2024 12:07 PM EST) [facility] WBC 7.1 4.8 - 10.8 K/mcL LAB HEMETOLOGY METHOD 06/26/2024 2:[address] [facility] RBC 3.80 3.80 - 4.80 M/mcL LAB HEMETOLOGY METHOD 06/26/2024 2:[address] [facility] Hemoglobin 11.0(L) 11.5 - 16.0 g/dL LAB HEMETOLOGY METHOD 06/26/2024 2:[address] [facility] Hematocrit 33.7(L) 35.0 - 47.0 % LAB HEMETOLOGY METHOD 06/26/2024 2:[address] [facility] MCV 88.9 79.0 - 98.0 FL LAB HEMETOLOGY METHOD 06/26/2024 2:[address] [facility] MCH 29.0 27.0 - 32.0 pcg LAB HEMETOLOGY METHOD 06/26/2024 2:[address] [facility] MCHC 32.6 32.0 - 37.0 g/dL LAB HEMETOLOGY METHOD 06/26/2024 2:14 PM EST [facility] RDW 13.3 11.0 - 15.0 % LAB HEMETOLOGY METHOD 06/26/2024 2:14 PM EST [facility] Platelets 369 130 - 400 K/mcL LAB HEMETOLOGY METHOD 06/26/2024 2:14 PM EST [facility] MPV 10.2 7.0 - 11.0 FL LAB HEMETOLOGY METHOD 06/26/2024 2:14 PM EST [facility] NRBC 0.0 <1.0 % LAB HEMETOLOGY METHOD 06/26/2024 2:14 PM EST [facility] NRBC Absolute 0.00 <0.10 K/mcL LAB HEMETOLOGY METHOD 06/26/2024 2:14 PM EST [facility] Blood Venous blood specimen / Unknown Venipuncture / Unknown 06/26/2024 12:07 PM EST 06/26/2024 12:07 PM EST us Jody Payne MD LAB BLOOD ORDERABLES Final Res ult [facility] [address] [place] [address], * (ABNORMAL) Thyroid stimulating hormone (06/26/2024 12:07 PM EST) TSH <0.05(L) 0.40 - 4.00 mcIU/mL LAB CHEMISTRY METHOD 06/26/2024 2:52 PM EST [facility] Blood Venous blood specimen / Unknown Venipuncture / Unknown 06/26/2024 12:07 PM EST 06/26/2024 12:07 PM EST us Jody Payne MD LAB BLOOD ORDERABLES Final Res ult [facility] [address] [place] [address], [place] [phone] * (ABNORMAL) Vitamin B12 (06/26/2024 12:07 PM EST) [facility] Vitamin B-12 201(L) 250 - 900 pcg/mL LAB CHEMISTRY METHOD 06/26/2024 3:14 PM EST [facility] Blood Venous blood specimen / Unknown Venipuncture / Unknown 06/26/2024 12:07 PM EST 06/26/2024 12:07 PM EST Jody Payne MD LAB BLOOD ORDERABLES Final Res ult Performing Organization Address [facility]/State/ZIP Co de Phone Number [facility] [address] [place] [address], [place] [phone] * (ABNORMAL) Comprehensive metabolic panel (06/26/2024 12:07 PM EST) [facility] Sodium 137 133 - 145 mmol/L LAB CHEMISTRY METHOD 06/26/2024 3:[address] [facility] Potassium 4.1 3.5 - 5.5 mmol/L LAB CHEMISTRY METHOD 06/26/2024 3:[address] [facility] Chloride 105 96 - 110 mmol/L LAB CHEMISTRY METHOD 06/26/2024 3:[address] [facility] CO2 30 21 - 32 mmol/L LAB CHEMISTRY METHOD 06/26/2024 3:[address] [facility] Anion Gap 2(L) 3 - 11 LAB CHEMISTRY METHOD 06/26/2024 3:[address] [facility] Glucose 89 70 - 100 mg/dL LAB CHEMISTRY METHOD 06/26/2024 3:[address] [facility] BUN 8 5 - 25 mg/dL LAB CHEMISTRY METHOD 06/26/2024 3:[address] [facility] Creatinine 0.48(L) 0.50 - 1.10 mg/dL LAB CHEMISTRY METHOD 06/26/2024 3:[address] [facility] eGFR 107 >=60 mL/min/1. 73m2 LAB CHEMISTRY METHOD 06/26/2024 3:[address] [facility] Comment:Calculation based on the??Chronic Kidney Disease Epidemiology Collaboration (CKD-EPI) equation refit??without adjustment for race. BUN/Creatinine Ratio 16.7 LAB CHEMISTRY METHOD 06/26/2024 3:[address] [facility] Calcium 9.0 8.5 - 10.5 mg/dL LAB CHEMISTRY METHOD 06/26/2024 3:[address] [facility] AST (SGOT) 19 10 - 42 unit/L LAB CHEMISTRY METHOD 06/26/2024 3:[address] [facility] ALT (SGPT) 17 10 - 60 unit/L LAB CHEMISTRY METHOD 06/26/2024 3:[address] [facility] Alkaline Phosphatase 65 42 - 121 unit/L LAB CHEMISTRY METHOD 06/26/2024 3:[address] [facility] Total Protein 8.1(H) 6.0 - 8.0 g/dL LAB CHEMISTRY METHOD 06/26/2024 3:[address] [facility] Albumin 3.8 3.2 - 5.0 g/dL LAB CHEMISTRY METHOD 06/26/2024 3:[address] [facility] Total Bilirubin 0.3 0.0 - 1.4 mg/dL LAB CHEMISTRY METHOD 06/26/2024 3:[address] [facility] Blood Venous blood specimen / Unknown Venipuncture / Unknown 06/26/2024 12:07 PM EST 06/26/2024 12:07 PM EST us Jody Payne MD LAB BLOOD ORDERABLES Final Res ult [facility] [address] [place] [address], [place] [phone] * Helicobacter pylori breath test (06/17/2024 1:28 PM EST) H Pylori Breath Test Negative Negative LAB CHEMISTRY METHOD 06/18/2024 12:31 PM EST [facility] Breath Oral cavity structure / Unknown Non-blood Collection / Unknown 06/17/2024 1:28 PM EST 06/17/2024 1:28 PM EST Germán Hou MD LAB BODY FLUIDS AND STOOLS ORDER SUMANTH Final Result [facility] [address] [place] [address], [place] [phone] * Depression Screening (02/22/2024) Depression Screening abstracted Historical Provider HEALTH MAINTENANCE Final Result * Hepatitis C Screening (01/31/2018) Hepatitis C Screening abstracted Historical Provider HEALTH MAINTENANCE Final Result from Last 3 Months or Most Recently Relevant to Health Maintenance Insurance [facility] Care Teams Box Tender Relationship Specialty Start Date End Date Jody Payne MD [address] [phone] PCP - General 03/11/24
--- OUTSIDE RECORDS SUMMARY | 2024-07-15 15:10 | XMS_ITS | Encounter Summary ---
Author Organization [facility] Address [address] [place] [address] Care Team Providers Care Technician'S Helper Name Role Phone Jody Payne MD Primary Care Provider [phone] Reason for Visit * Reason Onset Date Comments faxed form 07/10/2024 [facility] Encounter Details Date Type Department Care Team (Late st Contact Info) Description 07/10/2024 Telephone Internal Medicine - [place] [address] [place] [phone] Anna Jaquez [place] faxed form ([facility]) Social History Tobacco Use Types Packs/Day Years [...] Progress Notes * Anna Jaquez MA - 07/14/2024 2:46 PM EST Faxed [phone] * Anna Jaquez [place] - 07/10/2024 10:18 AM EST [facility], pcp summary form. Attached office note 06/26/2024 Med & prob list attached. Placed in providers folder for signature. documented in this encounter Plan of Treatment Upcoming Encounters Date Type Department Care Team (Late st Contact Info) Description 08/19/2024 1:30 PM EDT Appointment [facility] Endoscopy [address] [place] [phone] Blaise Yousif DO 175 [facility] [address] [place] [address] 12/24/2024 2:30 PM EDT Office Visit Internal Medicine - [place] 175 [facility] [address] [place] [phone] Jody Payne MD [address] [phone] documented as of this encounter Visit Diagnoses Not on filedocumented in this encounter Care Teams Technician'S Helper Relationship Specialty Start Date End Date Jody Payne MD 175 [facility] [address] [place] [phone] PCP - General 03/11/24 documented as of this encounter
--- OUTSIDE RECORDS SUMMARY | 2024-07-15 15:10 | XMS_ITS | Clinical Summary ---
Author Organization [facility] Address [address] [place] [address] Care Team Providers Care Papier Mache' Molder Name Role Phone Dinah Man Primary Care Provider Martha vailable Allergies No known active allergies Medications Medication Sig Dispensed Refills Start Date End Date Status levothyroxine (SYNTHROID) tablet 75 mcg TAKE ONE TABLET BY MOUTH EVERY DAY 0 11/25/2020 Active gabapentin (NEURONTIN) 100 MG capsule TAKE 4 CAPSULES BY MOUTH DAILY NEEDED FOR PAIN 0 03/08/2020 Active baclofen (LIORESAL) 10 MG tablet Take 10 mg by mouth. 0 12/18/2019 Active Active Problems Problem Noted Date Diagnosed Date Anemia 12/21/2020 Overview: has hx of transfusion, IV iron at the cancer center; last infusion was almost 2 yrs ago; last visit was 4-5 months ago Arthritis 12/21/2020 Overview: knees, low back Osteoporosis 12/21/2020 Overview: had DEXA done; on Fosamax Fibromyalgia 04/26/2020 Dysphagia 02/06/2019 Depression 02/05/2019 Hyperglobulinemia 02/08/2018 Other spondylosis with radiculopathy, lumbar reg ion 01/31/2018 GERD (gastroesophageal reflux disease) 4 Chest pain 03/25/2013 Leg pain 10/25/2012 Hypothyroidism 09/30/2012 Vitamin D insufficiency 06/26/2011 Chronic diarrhea 06/12/2011 Social History Tobacco Use Types Packs/Day Years Used Date Smoking Tobacco: Former Smokeless Tobacco: Never Alcohol Use Standard Drinks/Week Comments No 0 (1 standard drink = 0.6 oz pur e alcohol) Sex and Gender Information Value Date Recorded Sex Assigned at Not on file Gender Identity Not on file Sexual Orientation Not on file Job Start Date Occupation Industry Not on file Not on file Not on file Last Filed Vital Signs Vital Sign Reading Time Taken Comments Blood Pressure 132/66 12/21/2020 1:17 PM EDT Pulse 57 12/21/2020 1:17 PM EDT Temperature 36.2 ??C (97.1 ??F) 12/21/2020 1:17 PM ED T Respiratory Rate - - Oxygen Saturation 100% 12/21/2020 1:17 PM EDT Inhaled Oxygen Concentration - - Weight 51.7 kg (114 lb) 12/21/2020 1:17 PM EDT Height 149.9 cm (4' 11 ) 12/21/2020 1:17 PM EDT Body Mass Index 23.03 12/21/2020 1:17 PM EDT Plan of Treatment Health Maintenance Due Date Last Done Comments Hepatitis C Screening 1961 COVID-19 Vaccine (#1) 1961 Depression Screening 1973 Preventative Health Evaluation 1979 Cervical Cancer Screening (P ap Smear) 1982 Colon Cancer Screening (Colonoscopy) 2006 Breast Cancer Screening (Mammogram) 2011 Shingrix-Zoster Vaccine (1 of 2) 2011 DTap / Tdap / Td (2 - Td or Tdap) 06/12/2021 012 Influenza Vaccine (#1) 2024 RSV Adult > 60+ Yrs or Pregn ant (1 - 1-dose 75+ series) 2036 Hepatitis B Vaccines Aged Out No long er eligible based on patient's age to complete this topic Pneumococcal Vaccine Aged Out No long er eligible based on patient's age to complete this topic RSV Ped < 20 months Aged Out No longe r eligible based on patient's age to complete this topic Care Teams Papier Mache' Molder Relationship Specialty Start Date End Date Dinah Man PCP - General Internal Medicine 12/21/20
--- OUTSIDE RECORDS SUMMARY | 2024-07-15 15:10 | XMS_ITS | Encounter Summary ---
Author Organization [facility] Address [address] [place] [address] Care Team Providers Care Digital Product Manager Name Role Phone Jody Payne MD Primary Care Provider [phone] Reason for Visit * Reason Onset Date Comments Results 06/20/2024 H pylori breath test Encounter Details Date Type Department Care Team (Late st Contact Info) Description 06/20/2024 Telephone [facility]enterology - [place] [address] [place] [phone] Germán Hou MD [address] [place] [address] Results (H pylori breath test) Social History Tobacco Use Types Packs/Day Years [...] on file documented as of this encounter Ordered Prescriptions Prescription Sig Dispense Quantity Refills Last Filled Start Date End Date pantoprazole (PROTONIX) 40 mg EC tablet Take 1 tablet (40 mg total) by mouth 1 (one) time each day. Do not crush, chew, or split. 30 each 1 06/26/2024 06/26/2025 documented in this encounter Progress Notes * Kaya Roche MA - 06/26/2024 1:16 PM EST Spoke with patient, she will try this med. She has had no appetite. If she doesn't feel her heartburn is any better or still has no appetite she will call me next week to let me know. Kitty * MACARENA Morales - 06/26/2024 12:59 PM EST I will send her pantoprazole 40 mg daily and see how goes... * Kaya Roche MA - 06/26/2024 12:56 PM EST Elver Reed EGD/path states chronic gastritis and chronic carditis. Failed omeprazole 20 mg bid. Should she be on another PPI? Please advise. Thanks Kitty * Lina Ferris - 06/25/2024 1:36 PM EST Pt is calling back and she stated she is no longer taking the Omeprazole 20 mg twice a day. She stated that rx was not helping her with her heartburn. Instead she takes zofran when needed. She still would like to speak to someone. [phone] is her number * Kaya Roche MA - 06/23/2024 1:47 PM EST Left message for patient to call back. My message left was asking her if she is taking omeprazole 20 mg twice daily. 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 Advised her to be on delicate diet. No NSAIDs, nocaffeine, no alcohol, nothing spicy, greasy or fatty. Pt should be back on omeprazole 20 mg at least twice daily. That will help. Thank you * Kaya Roche MA - 06/20/2024 2:52 PM EST Patient called today and I informed her that her h pylori breath test was negative. She is saying her stomach feels less pain but she said it still does not feel 'right'. She said she feels nauseous a lot and takes the zofran when its bad, but she just has no appetite. She has tried Ensure drinks to supplement but she rarely can find her strawberry flavor which is the only one she likes. She had the EGD last year and is scheduled for a colonoscopy next month with Dr Hou. Her EGD pathology did show chronic gastritis and chronic carditis, what is best for her with these conditions? Please advise. Thanks Kitty documented in this encounter Plan of Treatment Upcoming Encounters Date Type Department Care Team (Late st Contact Info) Description 08/19/2024 1:30 PM EDT Appointment [facility] [address] [place] [phone] Blaise Yousif DO [address] [address] 12/24/2024 2:30 PM EDT Office Visit [facility] Medicine - [place] [address] [phone] Jody Payne MD [address] [phone] documented as of this encounter Visit Diagnoses Not on filedocumented in this encounter Care Teams Digital Product Manager Relationship Specialty Start Date End Date Jody Payne MD [address] [phone] PCP - General 03/11/24 documented as of this encounter
[2024-07-15 15:28] LABS: Basophils Percent Auto 0.5 % (0-2); Eosinophils Absolute Auto 0.1 X10*3/uL (0.0-0.4); Eosinophils Percent Auto 0.8 % (0-4); Hematocrit 33.2 % (37.0-47.0); Imm Gran Abs Auto 0.01 X10*3/uL (0.00-0.03); Imm Gran Pct Auto 0.2 % (0.0-0.4); Lymphocytes Absolute Auto 1.9 X10*3/uL (1.2-4.9); Lymphocytes Percent Auto 30.4 % (20-40); Mean Corpuscular HGB Conc 33.1 g/dl (31.0-35.0); Mean Corpuscular Hemoglobin 28.3 pg (27.0-33.0); Mean Corpuscular Volume 85.3 fL (80.0-98.0); Monocytes Absolute Auto 0.7 X10*3/uL (0.1-1.2); Monocytes Percent Auto 11.7 % (2-11); Neutrophils Absolute Auto 3.6 x10*3/uL (2.0-8.3); Neutrophils Percent Auto 56.4 % (45-73); Platelet Count 336 X10*3/uL (160-400); Red Blood Count 3.89 X10*6/uL (4.20-5.50); Red Cell Distribution Width 13.4 % (11.0-16.0); White Blood Count 6.3 X10*3/uL (4.8-10.8)
[2024-07-15 15:48] LABS: Rheumatoid Factor 13.9 IU/mL (<15.0)
[2024-07-15 17:06] LABS: Erythrocyte Sedimentation Rate 39 MM/HR (0-20)
[2024-07-15 17:56] LABS: Alanine Aminotransferase 11 U/L (0-31); Albumin Level 4.1 g/dL (3.5-5.0); Alkaline Phosphatase 58 U/L (39-117); Anion Gap 8 (12-20); Aspartate Amino Transferase 23 U/L (5-31); Bilirubin Total 0.5 mg/dL (0.0-1.0); Blood Urea Nitrogen 9 mg/dL (9-16); C Reactive Protein 0.26 mg/dL (< or = 0.50); Calcium 9.2 mg/dL (8.4-10.2); Carbon Dioxide 27 mmol/L (22-29); Chloride 106 mmol/L (96-108); Estimated Glomerular Filt Rate > 60; Glucose Random 90 mg/dL (60-115); Potassium 3.4 mmol/L (3.3-5.1); Sodium 138 mmol/L (135-145); Total Protein 8.8 g/dL (6.5-8.0)
[2024-07-15 18:15] LABS: Thyroid Stimulating Hormone 0.01 uIU/mL (0.32-4.0)
[2024-07-17 19:34] LABS: Cyclic Citrullinated Peptide <16 UNITS
[2024-07-17 21:28] LABS: Complement C3 133 mg/dL (83-193)
[2024-07-17 21:43] LABS: Anti DNA DS Antibody <1 IU/mL; Antibody to SS-A Antigen <1.0 NEG AI (<1.0 NEG); Antibody to SS-B Antigen <1.0 NEG AI (<1.0 NEG); SM/Ribonucleoprotein Ab >8.0 POS AI (<1.0 NEG); Smith Protein <1.0 NEG AI (<1.0 NEG)
[2024-07-18 08:58] LABS: Prot Elec - Albumin 4.1 g/dL (3.8-4.8); Prot Elec - Alpha1 0.3 g/dL (0.2-0.3); Prot Elec - Alpha2 0.9 g/dL (0.5-0.9); Prot Elec - Beta 1 0.3 g/dL (0.4-0.6); Prot Elec - Beta 2 0.3 g/dL (0.2-0.5); Prot Elec - Gamma 2.1 g/dL (0.8-1.7)
[2024-07-18 12:23] LABS: IgA <5 mg/dL (70-320); IgG 2589 mg/dL (600-1540); IgM 50 mg/dL (50-300)
[2024-07-19 13:34] LABS: Vitamin D 25-OH, D2 <4 ng/mL; Vitamin D 25-OH, D3 30 ng/mL; Vitamin D 25-OH, Total 30 ng/mL (30-100)
[2024-07-22 11:58] LABS: Anti Nuclear Antibody Pattern Nuclear, Speckled; Anti Nuclear Antibody Screen POSITIVE (NEGATIVE)
== END 2024-07-15 14:13 | disposition home or self-care (01) ==
LOC: HO.XRAY 14:12
PROVIDERS: PCP Internal Medicine; Visit Provider Student in an Organized Health Care Education/Training Program
DX: M25.50 Pain in unspecified joint (principal); M25.511 Pain in right shoulder; M25.512 Pain in left shoulder; G89.29 Other chronic pain
CPT/HCPCS: 36415; 73030; 73110; 73130; 80053; 82306; 82784; 84165; 84443; 85025; 85652; 86038; 86039; 86140; 86160; 86200; 86225; 86235; 86334; 86431

== ENCOUNTER → 2024-07-15 14:30 | Outpatient (BNV) | payer OTHER, SELFPAY | PROVIDERS: PCP Internal Medicine; Visit Provider Radiology Diagnostic Radiology | DX: M79.642 Pain in left hand (principal); M79.641 Pain in right hand; M25.511 Pain in right shoulder; M25.512 Pain in left shoulder | CPT/HCPCS: 73030; 73110; 73130 ==

== ENCOUNTER 2024-08-22 15:06 | Outpatient (AMB) | payer OTHER, SELFPAY ==
[2024-08-22 15:07] VITALS: BP 118/64; PULSE 61; O2SAT 99; BMI 21.0
--- NOTE | 2024-08-22 15:07 | MHC.OFFVIS ---
Vital Signs 08/22/24 15:07 Height 4 ft 11 in Weight 104 lb BMI 21.0 BP 118/64 Blood Pressure Location Lt brachial Position Sitting Pulse 61 Pulse Source Pulse Oximeter Pulse Oximetry (%) 99 Oxygen Delivery Method Room Air Intake Visit Reasons: discuss labs/bilat hand pain Intake Note: Patient presents today for follow up on lab review and bilateral hand pain. Allergies No Known Allergies Allergy (Verified 08/22/24 15:11) Medication List - Last Reconciled 08/22/24 by Iris Reza MD clotrimazole-betamethasone 1-0.05 % appl topical BID diclofenac sodium 1% (Arthritis Pain (diclofenac)) 4 grams topical TID-QID gabapentin 400 mg (4 x 100 mg) PO TID 30 days levothyroxine 75 mcg PO DAILY milnacipran 25 mg PO BID 90 days omeprazole 20 mg PO DAILY ondansetron HCl mg PO ondansetron HCl 4 mg PO Q8H PRN oxycodone-acetaminophen 5-325 mg 1 tab PO BID PRN HPI Comments Details: Patient is a 64-year-old female with hypothyroidism, polyarticular osteoarthritis and fibromyalgia here today for urgent visit. Interval History: Patient last seen 04/29/2024. At that time she was establishing care for the evaluation and management of whole-body pain. History at that time was not consistent with connective tissue disease and her examination was overall unremarkable with positive tender points. Restarted on medication for fibromyalgia however 1 week ago she noted swelling to her bilateral hands and now she is here today for an urgent visit to evaluate this. Patient has been having swelling to her hands associated with pain than stiffness for the past 1-2 weeks that is getting worse. Rheumatologic History: Initial history: Patient is a 63-year-old female with hypothyroidism, polyarticular osteoarthritis involving the knees and spine and fibromyalgia here to establish care Patient says she has a longstanding history of whole-body pain . Has seen several doctors and bili evaluated many times. Ultimately told that she has fibromyalgia. She also has osteoarthritis involving her knees, hands and now she is concerned that they involve her shoulders. She reports bilateral shoulder pain right worse than left with the right worsening over the past several months. She states that she feels that her pain is slowly getting worse to the point where she can not do anything and she can not perform her ADLs. Denies rashes, photosensitivity, alopecia, oral/nasal ulcers, sicca symptoms, lymphadenopathy, chest pain/shortness of breath,foamy urine, lower extremity edema, muscle weakness, Raynaud's Also denies history of seizure, CVA, psychosis, history of kidney problems, history of cytopenias, history of VTE including PE or DVTs Current Rheumatology Medication(s): Gabapentin 400 mg t.i.d. Milnacipran 25 mg b.i.d. [facility] Medical History (Updated 04/29/24 @ 15:44 by Iris Reza MD) Shoulder pain, bilateral Kidney stones Hyperglobulinemia Dysphagia IgG monoclonal gammopathy Fibromyalgia GERD (gastroesophageal reflux disease) Hypothyroidism Vitamin D deficiency Osteoporosis Anemia Review of Systems Const Details: Review of Systems Constitutional: Denies fever, chills, weight loss ENT: Denies vision changes, eye pain or eye redness, dental caries, dry mouth GI: Denies nausea, vomiting, diarrhea, abdominal pain, change in BM Pulm: Denies SOB, ALATORRE, hemoptysis, wheezing Cards: Denies chest pain, palpitations Skin: Denies Raynaud's, rash, nail changes, photosensitivity, CONSTRUCTION COST ESTIMATOR: Denies headaches, weakness, paresthesias, recurrent falls MSK: as per HPI All other systems reviewed and are unremarkable except noted above Physical Exam Vital Signs: Last Vital Signs Pulse 61 08/22/24 15:07 BP 118/64 08/22/24 15:07 Pulse Ox 99 08/22/24 15:07 Oxygen Delivery Method Room Air 08/22/24 15:07 BMI result Body Mass Index 21.0 Vital signs reviewed Physical Examination CONSTITUITIONAL Patient alert and cooperative. Well appearing and in no apparent painful distress HEENT Conjunctiva and sclera clear. ?Pupils equal round and reactive to light. ?No lymphadenopathy. ? CHEST/RESPIRATORY SYSTEM Normal respiratory effort and able to speak in complete sentences. ?Clear to auscultation bilaterally. ?No crackles, rales, rhonchi, wheezes heard. CARDIAC SYSTEM Regular rate and rhythm. ?S1 and S2 heard no murmurs. ?Radial pulses intact bilaterally MSK Hands: ?Able to make a fist but prominent swelling noted to hands with synovitis involving the MCPs and PIPs. Wrists: ?Full range of motion at the wrists without pain. ?No tenderness to palpation or synovitis noted to the wrists. Elbows: Full range of motion without pain. No tenderness, weakness, swelling, increased warmth or erythema. Shoulders: Full range of motion without pain. No tenderness, weakness, swelling, increased warmth or erythema. Hips: Full range of motion without pain. Hip bursa: No tenderness to palpation Knees: ?Full range of motion. ?No tenderness, swelling, increased warmth or erythema.?No effusion or crepitations Ankles: Full range of motion. ?No tenderness, swelling, increased warmth or erythema.? Feet: ?Negative squeeze test. ?No tenderness to palpation or swelling of the MTPs. Tender points:?No tenderness to palpation of the bilateral trapezius, supraspinatus, greater trochanters, anterior costochondral junctions, bilateral gluteal areas, bilateral suboccipital muscle insertions SKIN Skin intact without rashes. Results Reviewed Results Reviewed: Laboratory Tests 07/15/24 14:27 WBC 6.3 RBC 3.89 L Hgb 11.0 L Hct 33.2 L Plt Count 336 ESR 39 H Sodium 138 Potassium 3.4 Chloride 106 Carbon Dioxide 27 BUN 9 Creatinine 0.56 AST 23 ALT 11 Alkaline Phosphatase 58 C-Reactive Protein 0.26 Total Protein 8.8 H 25-OH Vitamin D Total 30 TSH 0.01 L Immunology labs 07/15/24 14:27 IgG Total 2589 H IgA Total <5 L IgM 50 Rheumatoid Factor 13.9 Cycl Citrul Peptide IgG <16 VAISHALI Screen POSITIVE A VAISHALI Titer 1:80 H VAISHALI Pattern Nuclear, Speckled A SS-A/Ro Antibody <1.0 NEG SS-B/La Antibody <1.0 NEG Sm (Dolan) Antibody <1.0 NEG SM/VENDING MACHINE ASSEMBLER IgG Antibody >8.0 POS A Double Strand DNA Ab <1 Complement C3 133 Complement C4 14 L XR Bilateral Hand/Wrists 07/2024 Findings: Bones intact. No dislocations. Mildly diffuse osteoarthritic changes throughout the IP joints. No erosions. No radiopaque foreign body. Mildly diffuse soft tissue swelling. IMPRESSION: 1. No acute fracture XR Bilateral Shoulders 07/2024 Findings: No fractures or dislocations. [id number] osteoarthritic changes of the AC joint. No erosions. No radiopaque foreign body. IMPRESSION: 1. No acute findings Assessment & Plan Assessment & Plan (1) Mixed connective tissue disease: Code(s): M35.1 - Other overlap syndromes Plan: #?MCTD Patient is a 64-year-old female presents today for urgent visit for evaluation of hand swelling and pain. 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 This could potentially be mixed connective tissue disease however patient does not meet full classification criteria at this time. 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 operator (current) drug therapy Plan: #Long-term Use of Hydroxychloroquine Discussed with patient the risks and benefits of hydroxychloroquine in managing the rheumatic condition Benefits include: - Reduced pain, reduce mortality, maintenance of remission and reduction of flares Risks include: - GI upset, skin hyperpigmentation, retinal toxicity (especially after more than 5 years of use), myopathy Advised yearly ophthalmology visits Plan I spent 46 minutes reviewing the record and labs, taking a history, examining the patient, discussing the treatment plan, ordering diagnostic work up and documenting in the medical record Medications: New hydroxychloroquine (Plaquenil) 200 mg PO BID 180 tabs 1RF M19.90 - Unspecified osteoarthritis, unspecified site prednisone Take 3 pills for 7 days then 2 pills for 7 days then 1 pill for 7 days then stop 5 mg PO DIRECTED 90 tabs 0RF Coding Level of Care Code Est Pt Level 5 (77727) Complex EM visit Add On G2211 Diagnoses Mixed connective tissue disease M35.1 Long-term use of Plaquenil Z79.899
--- OUTSIDE RECORDS SUMMARY | 2024-08-22 17:12 | XMS_ITS | Clinical Summary ---
Author Organization [facility] Address [address] [place] [address] Phone Care Team Providers Care Tankman Name Role Phone Jody Payne MD Primary Care Provider [phone] Allergies No known active allergies Medications clotrimazole-be tamethasone (LOTRISONE) 1-0.05 % cream Apply twice a [...] MOUTH EVERY DAY 90 tablet 4 Active cholecalciferol (Vitamin D3) 50 mcg (2,000 unit) [...] chew, or split. 30 each 1 5 06/26/19 26 Active cholecalciferol (Vitamin D3) 50 mcg (2,000 unit) [...] 1 (one) time each day. 90 each 5 Active gabapentin (NEURONTIN) 100 mg capsule TAKE TWO CAPSULES BY MOUTH TWICE A DAY 120 capsule 1 5 Active polyethylene glycol (Golytely) 236-22.74-6.74 -5.86 gram solution Take 4L by mouth once for one dose. May substitue any PEG. Starting at 6PM the night before your procedure drink 1 8oz glasses at your own pace until you complete half of the gallon. Finish 2nd half of the gallon 5 hours before your procedure. 4000 mL 5 Active bisacodyL (DULCOLAX) 5 mg EC tablet Take 2 tablets by mouth right before beginning bowel prep. See instructions provided by the office 2 tablet 5 Active Active Problems Problem Noted Date Diagnosed [...] gammopathy 01/20/2021 Overview (03/20/2024): Followed by Dr. Ruth Fibromyalgia 04/26/2020 Dysphagia 02/06/2019 Hyperglobulinemia 02/08/2018 Osteoarthritis of spine with radiculopathy, lumb ar region 01/31/2018 Other spondylosis with radiculopathy, lumbar reg ion 01/31/2018 GERD (gastroesophageal reflux disease) 4 Hypothyroidism 09/30/2012 Vitamin D insufficiency 06/26/2011 Encounters Date Type Department Care Team Description 08/19/2024 1:30 PM EDT Hospital Encounter [facility] Endoscopy [address] [place] [phone] Blaise Yousif DO Barnes, Tyanna R, CRNA Spencer, Mark A, MD 08/14/2024 Telephone Internal Medicine [facility] [address] [phone] Jody Payne MD FYI: eMgan Fax 08/14/2024 Telephone Gastroenterology [address] [phone] Blaise Yousif DO special procedure 08/13/2024 Telephone Vascular Surgery [facility] [address] [place] [phone] Shilpa Liu MD radiology 08/08/2024 Telephone Internal Medicine [facility] [address] [phone] Natividad Arroyo [place] 07/10/2024 Telephone Internal Medicine [facility] [address] [phone] Anna Jaquez [place] faxed form ([facility]) 07/08/2024 Telephone Internal Medicine [facility] [address] [phone] Jody Payne MD PT-1 06/30/2024 Telephone Internal Medicine [address] [address] Jody Payne MD [place]: Call back 06/26/2024 11:30 AM EST Office Visit Internal Medicine [address] [address] Jody Payne MD Anemia, unspecified type (Primary Dx); Hypothyroidism due to acquired atrophy of thyroid; Breast cancer screening by mammogram; Vitamin D deficiency; Vitamin B12 deficiency 06/20/2024 Telephone Gastroenterology [address] [address] Germán Hou MD Results (H pylori breath test) from Last 3 Months Immunizations Name Administration Dates Next Due Tdap Tetanus diptheria acell ular pertussis (Boostrix; Adacel) 7yo and older 06/12/2011 Surgical History Surgery Date Site/Laterality Comments KIDNEY STONE SURGERY 2010 PROCEDURE: ID NEPHROLITHOTOMY REMOVAL CALCULUS LIPOMA RESECTION 2013 PROCEDURE: SKIN TISSUE EXCISION(LIPOMA) WRIST SURGERY Right [...] Care Team (Late st Contact Info) Description 09/15/2024 1:00 PM EDT Appointment [facility] Ultrasound [address] [place] [address] 11/06/2024 1:20 PM EDT Appointment Radiology Department [address] [address] 12/24/2024 2:30 PM EDT Office Visit Internal Medicine - [place] 175 [facility] [address] [place] [address] Jody Payne MD 175 [facility] [address] [place] [address] Health Maintenance Due Date Last Done Comments Breast Cancer Screening 1961 Cervical Cancer Screening: P ap Smear 1982 Pneumococcal Vaccine: 50+ Years (1 of 1 - PCV) 2011 Zoster Vaccines (1 of 2) 2011 DTaP,Tdap,and Td Vaccines (2 - Td or Tdap) 06/12/2021 06/12/2011 Colorectal Cancer Screening: Stool Based Tests [...] Procedure Name Priority Date/Time Associated Diagnosis Comments EXTERNAL CLINICAL LAB 07/15/2024 EXTERNAL CLINICAL LAB 07/15/2024 EXTERNAL CLINICAL LAB 07/15/2024 EXTERNAL CLINICAL LAB 07/15/2024 EXTERNAL XRAY REPORT 07/15/2024 EXTERNAL XRAY REPORT 07/15/2024 EXTERNAL XRAY REPORT 07/15/2024 EXTERNAL XRAY REPORT 07/15/2024 EXTERNAL XRAY REPORT 07/15/2024 EXTERNAL XRAY REPORT 07/15/2024 EXTERNAL XRAY REPORT 07/15/2024 EXTERNAL XRAY REPORT 07/15/2024 VITAMIN D 25 HYDROXY Routine 06/26/2024 12:07 [...] 06/17/2024 1:28 PM EST Helicobacter pylori gastritis HM DEPRESSION SCREENING Routine 02/22/2024 HEPATITIS C SCREENING Routine 01/31/2018 from Last 3 Months or Most Recently Relevant to Health Maintenance Results * External Xray Report (07/15/2024) Only the most recent of8 resultswithin the time period is included. Anatomical Region Laterality Modality Radiographic Dena ging Provider [facility] IMG XR PROCEDURES Final Result * External clinical lab (07/15/2024) Only the most recent of4 resultswithin the time period is included. Provider [facility] LAB BLOOD ORDERABLES Fin al Result * (ABNORMAL) Lipid panel with reflex to direct LDL (06/26/2024 12:07 PM EST) Cholesterol 174 0 - 200 mg/dL LAB CHEMISTRY METHOD 06/26/2024 3:14 PM [facility] Triglycerides 126 0 - 150 mg/dL LAB CHEMISTRY METHOD 06/26/2024 3:14 PM [facility] HDL 44 >=40 mg/dL LAB CHEMISTRY METHOD 06/26/2024 3:14 PM [facility] LDL Calculated 105(H) 0 - 100 mg/dL LAB CHEMISTRY METHOD 06/26/2024 3:14 PM [facility] VLDL Cholesterol Benja 25.2 mg/dL LAB CHEMISTRY METHOD 06/26/2024 3:14 PM [facility] Non HDL Chol. (LDL+VLDL) 130 <145 mg/dL LAB CHEMISTRY METHOD 06/26/2024 3:14 PM [facility] Chol/HDL Ratio 4.0 0.0 - 4.4 LAB CHEMISTRY METHOD 06/26/2024 3:14 PM [facility] Blood Venous blood specimen / Unknown Venipuncture / Unknown 06/26/2024 12:07 PM EST 06/26/2024 12:07 PM EST us Jody Payne MD LAB BLOOD ORDERABLES Final Res ult [facility] [address] [place] [address], [place] [phone] * (ABNORMAL) Vitamin D 25 hydroxy (06/26/2024 12:07 PM EST) [facility] Vit D, 25-Hydroxy 19.4(L) 30.0 - 80.0 ng/mL LAB CHEMISTRY METHOD 06/26/2024 2:52 PM [facility] Blood Venous blood specimen / Unknown Venipuncture / Unknown 06/26/2024 12:07 PM EST 06/26/2024 12:07 PM EST us Jody Payne MD LAB BLOOD ORDERABLES Final Res ult Performing Organization Address City/[facility]/ZIP Co de Phone Number [facility] [address] [place] [address], [place] [phone] * (ABNORMAL) Complete blood count (06/26/2024 12:07 PM EST) [facility] WBC 7.1 4.8 - 10.8 K/mcL LAB HEMETOLOGY METHOD 06/26/2024 2:14 PM [facility] RBC 3.80 3.80 - 4.80 M/mcL LAB HEMETOLOGY METHOD 06/26/2024 2:14 PM [facility] Hemoglobin 11.0(L) 11.5 - 16.0 g/dL LAB HEMETOLOGY METHOD 06/26/2024 2:14 PM [facility] Hematocrit 33.7(L) 35.0 - 47.0 % LAB HEMETOLOGY METHOD 06/26/2024 2:14 PM [facility] MCV 88.9 79.0 - 98.0 FL LAB HEMETOLOGY METHOD 06/26/2024 2:14 PM EST [facility] MCH 29.0 27.0 - 32.0 pcg LAB HEMETOLOGY METHOD 06/26/2024 2:14 PM EST [facility] MCHC 32.6 32.0 - 37.0 g/dL LAB HEMETOLOGY METHOD 06/26/2024 2:14 PM [facility] RDW 13.3 11.0 - 15.0 % LAB HEMETOLOGY METHOD 06/26/2024 2:14 PM EST [facility] Platelets 369 130 - 400 K/mcL LAB HEMETOLOGY METHOD 06/26/2024 2:14 PM EST [facility] MPV 10.2 7.0 - 11.0 FL LAB HEMETOLOGY METHOD 06/26/2024 2:14 PM [facility] NRBC 0.0 <1.0 % LAB HEMETOLOGY METHOD 06/26/2024 2:14 PM [facility] NRBC Absolute 0.00 <0.10 K/mcL LAB HEMETOLOGY METHOD 06/26/2024 2:14 PM [facility] Blood Venous blood specimen / Unknown Venipuncture / Unknown 06/26/2024 12:07 PM EST 06/26/2024 12:07 PM EST us Jody Payne MD LAB BLOOD ORDERABLES Final Res ult [facility] [address] [place] [address], * (ABNORMAL) Thyroid stimulating hormone (06/26/2024 12:07 PM EST) TSH <0.05(L) 0.40 - 4.00 mcIU/mL LAB CHEMISTRY METHOD 06/26/2024 2:52 PM EST [facility] Blood Venous blood specimen / Unknown Venipuncture / Unknown 06/26/2024 12:07 PM EST 06/26/2024 12:07 PM EST Jody Payne MD LAB BLOOD ORDERABLES Final Res ult Performing Organization Address [facility]/ZIP Co de Phone Number [facility] [address] [place] [address], [place] [phone] * (ABNORMAL) Vitamin B12 (06/26/2024 12:07 PM EST) [facility] Vitamin B-12 201(L) 250 - 900 pcg/mL LAB CHEMISTRY METHOD 06/26/2024 3:14 PM EST [facility] Blood Venous blood specimen / Unknown Venipuncture / Unknown 06/26/2024 12:07 PM EST 06/26/2024 12:07 PM EST Jody Payne MD LAB BLOOD ORDERABLES Final Res ult Performing Organization Address City/[facility]/ZIP Co de Phone Number [facility] [address] [place] [address], [place] [phone] * (ABNORMAL) Comprehensive metabolic panel (06/26/2024 12:07 PM EST) [facility] Sodium 137 133 - 145 mmol/L LAB CHEMISTRY METHOD 06/26/2024 3:14 PM [facility] Potassium 4.1 3.5 - 5.5 mmol/L LAB CHEMISTRY METHOD 06/26/2024 3:14 PM [facility] Chloride 105 96 - 110 mmol/L LAB CHEMISTRY METHOD 06/26/2024 3:14 PM [facility] CO2 30 21 - 32 mmol/L LAB CHEMISTRY METHOD 06/26/2024 3:14 PM [facility] Anion Gap 2(L) 3 - 11 LAB CHEMISTRY METHOD 06/26/2024 3:14 PM [facility] Glucose 89 70 - 100 mg/dL LAB CHEMISTRY METHOD 06/26/2024 3:14 PM [facility] BUN 8 5 - 25 mg/dL LAB CHEMISTRY METHOD 06/26/2024 3:14 PM [facility] Creatinine 0.48(L) 0.50 - 1.10 mg/dL LAB CHEMISTRY METHOD 06/26/2024 3:14 PM [facility] eGFR 107 >=60 mL/min/1. 73m2 LAB CHEMISTRY METHOD 06/26/2024 3:14 PM [facility] Comment:Calculation based on the??Chronic Kidney Disease Epidemiology Collaboration (CKD-EPI) equation refit??without adjustment for race. BUN/Creatinine Ratio 16.7 LAB CHEMISTRY METHOD 06/26/2024 3:14 PM [facility] Calcium 9.0 8.5 - 10.5 mg/dL LAB CHEMISTRY METHOD 06/26/2024 3:14 PM [facility] AST (SGOT) 19 10 - 42 unit/L LAB CHEMISTRY METHOD 06/26/2024 3:14 PM [facility] ALT (SGPT) 17 10 - 60 unit/L LAB CHEMISTRY METHOD 06/26/2024 3:14 PM [facility] Alkaline Phosphatase 65 42 - 121 unit/L LAB CHEMISTRY METHOD 06/26/2024 3:14 PM [facility] Total Protein 8.1(H) 6.0 - 8.0 g/dL LAB CHEMISTRY METHOD 06/26/2024 3:14 PM [facility] Albumin 3.8 3.2 - 5.0 g/dL LAB CHEMISTRY METHOD 06/26/2024 3:14 PM [facility] Total Bilirubin 0.3 0.0 - 1.4 mg/dL LAB CHEMISTRY METHOD 06/26/2024 3:14 PM [facility] Blood Venous blood specimen / Unknown Venipuncture / Unknown 06/26/2024 12:07 PM EST 06/26/2024 12:07 PM EST Jody Payne MD LAB BLOOD ORDERABLES Final Res ult Performing Organization Address City/[facility]/ZIP Co de Phone Number [facility] [address] [place] [address], [place] [phone] * Helicobacter pylori breath test (06/17/2024 1:28 PM EST) H Pylori Breath Test Negative Negative LAB CHEMISTRY METHOD 06/18/2024 12:31 PM EST [facility] Breath Oral cavity structure / Unknown Non-blood Collection / Unknown 06/17/2024 1:28 PM EST 06/17/2024 1:28 PM EST Germán Hou MD LAB BODY FLUIDS AND STOOLS ORDER SUMANTH Final Result Performing Organization Address [facility]/ZIP Co de Phone Number [facility] [address] [place] [address], [place] [phone] * Depression Screening (02/22/2024) Depression Screening abstracted Historical Provider HEALTH MAINTENANCE Final Result * Hepatitis C Screening (01/31/2018) Hepatitis C Screening abstracted Historical Provider HEALTH MAINTENANCE Final Result from Last 3 Months or Most Recently Relevant to Health Maintenance Insurance [facility] [employer] Care Teams Tankman Relationship Specialty Start Date End Date Jody Payne MD [address] [address] PCP - General 03/11/24
--- OUTSIDE RECORDS SUMMARY | 2024-08-22 17:12 | XMS_ITS | Encounter Summary ---
Author Organization [employer] Address [address] [place] [address] Care Team Providers Care Drawing Hand Name Role Phone Jody Payne MD Primary Care Provider [phone] Reason for Visit * Reason Onset Date Comments special procedure 08/14/2024 Encounter Details Date Type Department Care Team (Late st Contact Info) Description 08/14/2024 Telephone Gastroenterology - [place] [address] [place] [phone] Blaise Yousif DO [address] [place] [address] special procedure Social History Tobacco Use Types Packs/Day Years [...] as of this encounter Progress Notes * Jeffery Ortiz - 08/14/2024 2:05 PM EDT Called and spoke to patient she will call us back to schedule * Neha Green - 08/14/2024 1:55 PM EDT Patient calling to cancel colonoscopy due to a conflicting appt. Patient will call back to reschedule. documented in this encounter Plan of Treatment Upcoming Encounters Date Type Department Care Team (Late st Contact Info) Description 09/15/2024 1:00 PM EDT Appointment [facility] Ultrasound [address] [place] [address] 11/06/2024 1:20 PM EDT Appointment Radiology Department [address] [address] 12/24/2024 2:30 PM EDT Office Visit Internal Medicine - [place] [address] [phone] Jody Payne MD [address] [phone] documented as of this encounter Visit Diagnoses Not on filedocumented in this encounter Care Teams Drawing Hand Relationship Specialty Start Date End Date Jody Payne MD [address] [phone] PCP - General 03/11/24 documented as of this encounter
--- OUTSIDE RECORDS SUMMARY | 2024-08-22 17:12 | XMS_ITS | Encounter Summary ---
Author Organization [employer] Address [address] [place] [address] Care Team Providers Care Technical Sales Director Name Role Phone Jody Payne MD Primary Care Provider [phone] Reason for Visit * Reason Onset Date Comments Kerry: Call back 06/30/2024 Encounter Details Date Type Department Care Team (Late st Contact Info) Description 06/30/2024 Telephone Internal Medicine - [place] [address] [place] [phone] Jody Payne MD [address] [place] [phone] Kerry: Call back Social History Tobacco Use [...] medication she is taking. Please advise Cb# [phone] documented in this encounter Plan of Treatment Upcoming Encounters Date Type Department Care Team (Late st Contact Info) Description 09/15/2024 1:[address] [facility] Ultrasound [address] [place] [phone] 11/06/2024 1:20 PM EDT Appointment Radiology Department [address] [address] 12/24/2024 2:30 PM EDT Office Visit Internal Medicine - [place] [address] [phone] Jody Payne MD [address] [phone] documented as of this encounter Visit Diagnoses Not on filedocumented in this encounter Care Teams Technical Sales Director Relationship Specialty Start Date End Date Jody Payne MD [address] [phone] PCP - General 03/11/24 documented as of this encounter
--- OUTSIDE RECORDS SUMMARY | 2024-08-22 17:12 | XMS_ITS | Encounter Summary ---
Author Organization [facility] Address [address] [place] [address] Care Team Providers Care National Van Owner Operator Name Role Phone Jody Payne MD Primary Care Provider [phone] Reason for Visit * Reason Onset Date Comments FYI: Megan Fax 08/14/2024 Encounter Details Date Type Department Care Team (Late st Contact Info) Description 08/14/2024 Telephone Internal Medicine - [place] [address] [facility] [address] [place] [phone] Jody Payne MD [address] [facility] [address] [place] [phone] FYI: Megan Fax Social History Tobacco Use Types Packs/Day Years [...] as of this encounter Progress Notes * Gerard Guzman MA - 08/15/2024 11:14 AM EDT FYI * Kindra Wagoner - 08/14/2024 2:14 PM EDT Patient called and stated that megan went to her home to visit her and they will be sending over paperwork for the provider to sign today. documented in this encounter Plan of Treatment Upcoming Encounters Date Type Department Care Team (Late st Contact Info) Description 09/15/2024 1:00 PM EDT Appointment [facility] Ultrasound [address] [place] [address] 11/06/2024 1:20 PM EDT Appointment Radiology Department - [address] [address] 12/24/2024 2:30 PM EDT Office Visit Internal Medicine - [place] [address] [phone] Jody Payne MD [address] [phone] documented as of this encounter Visit Diagnoses Not on filedocumented in this encounter Care Teams National Van Owner Operator Relationship Specialty Start Date End Date Jody Payne MD [address] [phone] PCP - General 03/11/24 documented as of this encounter
--- OUTSIDE RECORDS SUMMARY | 2024-08-22 17:12 | XMS_ITS | Clinical Summary ---
Author Organization [facility] Address [address] [place] [address] Care Team Providers Care Benefits Consultant Name Role Phone Dinah Man Primary Care [...] age to complete this topic Care Teams Benefits Consultant Relationship Specialty Start Date End Date Dinah Man PCP - General Internal Medicine 12/21/20
--- OUTSIDE RECORDS SUMMARY | 2024-08-22 17:12 | XMS_ITS | Encounter Summary ---
Author Organization [employer] Address [address] [place] [address] Care Team Providers Care Weir Fisher Name Role Phone Jody Payne MD Primary Care Provider [phone] Reason for Visit * Reason Onset Date Comments radiology 08/13/2024 Encounter Details Date Type Department Care Team (Late st Contact Info) Description 08/13/2024 Telephone Vascular Surgery - [place] [address] [place] [address] Shilpa Liu MD [address] [place] [address] radiology Social History Tobacco Use Types Packs/Day Years [...] as of this encounter Progress Notes * Indra Nobles MA - 08/13/2024 2:49 PM EDT Patient to call [facility] and reschedule her u/s appointment then call us for follow up appointment * Ameena Mir - 08/13/2024 2:10 PM EDT Patient last seen on 11/29/22 was to have u/s then f/u in a year patient states she has yet to have u/s documented in this encounter Plan of Treatment Upcoming Encounters Date Type Department Care Team (Late st Contact Info) Description 09/15/2024 1:00 PM EDT Appointment [facility] Ultrasound [address] [place] [phone] 11/06/2024 1:20 PM EDT Appointment Radiology Department - [place] [address] [place] [address] 12/24/2024 2:30 PM EDT Office Visit Internal Medicine - [place] [address] [phone] Jody Payne MD [address] [phone] documented as of this encounter Visit Diagnoses Not on filedocumented in this encounter Care Teams Weir Fisher Relationship Specialty Start Date End Date Jody Payne MD [address] [phone] PCP - General 03/11/24 documented as of this encounter
--- OUTSIDE RECORDS SUMMARY | 2024-08-22 17:12 | XMS_ITS | Encounter Summary ---
Author Organization [employer] Address [address] [place] [address] Care Team Providers Care Assembly Loader Name Role Phone Jody Payne MD Primary Care Provider [phone] Encounter Details Date Type Department Care Team (Late st Contact Info) Description 08/08/2024 Telephone Internal Medicine - [place] 175 [facility] [address] [place] [phone] Natividad Arroyo MA Social History Tobacco Use Types Packs/Day Years [...] as of this encounter Progress Notes * Natividad Arroyo MA - 08/22/2024 11:04 AM EDT Tried to reach patient, no answer, left message to call back 08/22/24 Natividad Arroyo MA * Janie Irwin - 08/08/2024 2:16 PM EST Please contact patient- re: message below 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 - Also pain * Natividad Arroyo MA - 08/08/2024 12:46 PM EST Tried to reach patient, no answer, left message to call back 08/08/24 Natividad Arroyo [place] * Natividad Arroyo MA - 08/08/2024 12:46 PM EST ----- Message from Shaggy Payne MD sent at 08/08/2024 8:34 AM EST ----- Asked patient to make sure she is taking levothyroxine 50 mcg not the 75 I recently changed it from 75-50 last month documented in this encounter Plan of Treatment Upcoming Encounters Date Type Department Care Team (Late st Contact Info) Description 09/15/2024 1:00 PM EDT Appointment [facility] Ultrasound [address] [place] [address] 11/06/2024 1:20 PM EDT Appointment Radiology Department [address] [phone] 12/24/2024 2:30 PM EDT Office Visit Internal Medicine - [place] [address] [phone] Jody Payne MD [address] [phone] documented as of this encounter Visit Diagnoses Not on filedocumented in this encounter Care Teams Assembly Loader Relationship Specialty Start Date End Date Jody Payne MD [address] [phone] PCP - General 03/11/24 documented as of this encounter
--- OUTSIDE RECORDS SUMMARY | 2024-08-22 17:12 | XMS_ITS | Encounter Summary ---
Author Organization [employer] Address [address] [place] [address] Care Team Providers Care Waiter/Waitress First Class Name Role Phone Jody Payne MD Primary Care Provider [phone] Reason for Visit * Hospital - Outpatient (Routine) - Authorized Specialty Diagnoses / Procedures Referred By Octavio eller Referred To Contact Gastroenterology Diagnoses Anemia Procedures COLONOSCOPY Anesthesia - MAC; [facility] ENDOSCOPY Blaise Yousif DO [address] [address] Phone: tel: fax: [facility] [address] [place] [address] Phone: tel: Referral ID Status Reason Start Date Expiration Date V isits Requested Visits Authorized [id number] Authorized 07/03/2024 07/03/2025 1 1 Encounter Details Date Type Department Care Team (Late st Contact Info) Description 08/19/2024 1:30 PM EDT Hospital Encounter [facility] [address] [place] [phone] Blaise Yousif DO [address] [phone] Jenny Herndon CRNA [address] [place] [id number] Brock Dong MD [address] [place] [id number] Social History Tobacco Use Types Packs/Day Years [...] on file documented as of this encounter Plan of Treatment Upcoming Encounters Date Type Department Care Team (Late st Contact Info) Description 09/15/2024 1:[address] [facility] Ultrasound [address] [place] [phone] 11/06/2024 1:20 PM EDT Appointment Radiology Department [address] [phone] 12/24/2024 2:30 PM EDT Office Visit Internal Medicine [facility] 175 [facility] [address] [place] [phone] Jody Payne MD [address] [phone] Scheduled Orders Name Type Priority Associated Diagnoses Orde r Schedule COLONOSCOPY Anesthesia - MAC; [facility] ENDOSCOPY Endoscopy Routine Anemia Expected: 08/19/2024, Expires: 07/03/2025 documented as of this encounter Visit Diagnoses Not on filedocumented in this encounter Care Teams Waiter/Waitress First Class Relationship Specialty Start Date End Date Jody Payne MD [address] [phone] PCP - General 03/11/24 documented as of this encounter
== END 2024-08-22 15:49 | disposition home or self-care (01) ==
PROVIDERS: PCP Internal Medicine; Visit Provider Student in an Organized Health Care Education/Training Program
DX: M35.1 Other overlap syndromes (principal); Z79.899 Other long term (current) drug therapy
CPT/HCPCS: 99215; G2211

== ENCOUNTER → 2024-08-22 15:06 | Outpatient (BNVA) | payer OTHER, SELFPAY | PROVIDERS: PCP Internal Medicine; Visit Provider Student in an Organized Health Care Education/Training Program | DX: M35.1 Other overlap syndromes (principal); Z79.899 Other long term (current) drug therapy | CPT/HCPCS: 99212 ==

== ENCOUNTER 2025-03-19 15:11 | Outpatient (AMB) | payer OTHER, SELFPAY ==
--- NOTE | 2025-03-19 15:37 | A.OFFVIS_ITS ---
Vital Signs 03/19/25 15:46 Height 4 ft 11 in Weight 108 lb 7.479 oz BMI 21.9 BP 100/60 Blood Pressure Location Lt brachial Position Sitting Pulse 59 Pulse Source Pulse Oximeter Pulse Oximetry (%) 98 Oxygen Delivery Method Room Air Intake Visit Reasons: f/u Intake Note: Patient presents for Fibromyalgia follow up. Allergies No Known Allergies Allergy (Verified 03/19/25 15:45) Medication List - Last Reconciled 03/19/25 by Iris Reza MD clotrimazole-betamethasone 1-0.05 % appl topical BID diclofenac sodium 1% (Arthritis Pain (diclofenac)) 4 grams topical TID-QID gabapentin 400 mg (4 x 100 mg) PO TID 30 days levothyroxine 75 mcg PO DAILY omeprazole 20 mg PO DAILY ondansetron HCl mg PO ondansetron HCl 4 mg PO Q8H PRN HPI Comments Details: Patient is a 64-year-old female with hypothyroidism, polyarticular osteoarthritis and fibromyalgia here today for urgent visit. Interval History: Patient last seen 08/22/24 with me - On gabapentin 400mg tid and milnacipran 25mg bid - Patient has been having swelling to her hands associated with pain than stiffness for the past 1-2 weeks that is getting worse. 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 Has seen several doctors and bili evaluated many times. Ultimately told that she has fibromyalgia. She also has osteoarthritis involving her knees, hands and now she is concerned that they involve her shoulders. She reports bilateral shoulder pain right worse than left with the right worsening over the past several months. She states that she feels that her pain is slowly getting worse to the point where she can not do anything and she can not perform her ADLs. Denies rashes, photosensitivity, alopecia, oral/nasal ulcers, sicca symptoms, lymphadenopathy, chest pain/shortness of breath,foamy urine, lower extremity edema, muscle weakness, Raynaud's Also denies history of seizure, CVA, psychosis, history of kidney problems, history of cytopenias, history of VTE including PE or DVTs Current Rheumatology Medication(s): Gabapentin 400 mg t.i.d. ON LICENSE OF [facility] Medical History (Updated 04/29/24 @ 15:44 by Iris Reza MD) Shoulder pain, bilateral Kidney stones Hyperglobulinemia Dysphagia IgG monoclonal gammopathy Fibromyalgia GERD (gastroesophageal reflux disease) Hypothyroidism Vitamin D deficiency Osteoporosis Anemia Family History Mother Arthritis Stroke Social History Household Members: Family Housing: Apartment Alcohol intake: current Comment: Occasionally Patient Tobacco Use Status: Former Tobacco user Tobacco use type: Cigarette Cigarettes Per Day: 2 Years Smoked: 10 Review of Systems Const Details: Review of Systems Constitutional: Denies fever, chills, weight loss ENT: Denies vision changes, eye pain or eye redness, dental caries, dry mouth GI: Denies nausea, vomiting, diarrhea, abdominal pain, change in BM Pulm: Denies SOB, ALATORRE, hemoptysis, wheezing Cards: Denies chest pain, palpitations Skin: Denies Raynaud's, rash, nail changes, photosensitivity, SNUFF PACKING MACHINE OPERATOR: Denies headaches, weakness, paresthesias, recurrent falls MSK: as per HPI All other systems reviewed and are unremarkable except noted above Physical Exam Exam Exam: Vital signs reviewed Physical Examination CONSTITUITIONAL Patient alert and cooperative. Well appearing and in no apparent painful distress MSK Hands * Right Hand: Able to make a fist. No swelling or tenderness to palpation of the MCPs, PIPs or DIPs. * Left Hand: Able to make a fist. No swelling or tenderness to palpation of the MCPs, PIPs or DIPs. * Mild swelling and TTP of the bilateral 5th PIPs * Herbedens nodes noted bilaterally Wrists * Right Wrist: Full ROM to flexion and extension. No swelling or TTP * Left Wrist: Full ROM to flexion and extension. No swelling or TTP Elbows * Right Elbow: Full ROM. No swelling or TTP. No TTP of the medial epicondyle. No TTP of the lateral epicondyle * Left Elbow: Full ROM. No swelling or TTP. No TTP of the medial epicondyle. No TTP of the lateral epicondyle Shoulders * Right shoulder: No swelling noted. No TTP of the AC joint. No TTP of the subacromial bursa. No TTP of the posterior shoulder * Left shoulder: No swelling noted. No TTP of the AC joint. No TTP of the subacromial bursa. No TTP of the posterior shoulder * Decreased ROM bilaterally R>L Knees * Right knee: Full ROM. No swelling noted. No TTP of the knee joint line. No TTP of pes anserine bursa * Left knee: Full ROM. No swelling noted. No TTP of the knee joint line. No TTP of pes anserine bursa. * Crepitations felt bilaterally Ankles * Right ankle: Good ankle dorsiflexion and plantar flexion. No swelling. No TTP of the ankle joint * Left ankle: Good ankle dorsiflexion and plantar flexion. No swelling. No TTP of the ankle joint Feet * Right foot: Positive squeeze test * Left foot: Positive squeeze test Tender points? * No tenderness to palpation of the bilateral trapezius, supraspinatus, anterior costochondral junctions, bilateral suboccipital muscle insertions SKIN No rashes Vital Signs: Last Vital Signs Pulse 59 03/19/25 15:46 BP 100/60 03/19/25 15:46 Pulse Ox 98 03/19/25 15:46 Oxygen Delivery Method Room Air 03/19/25 15:46 BMI result Body Mass Index 21.9 Results Reviewed Results Reviewed: Laboratory Tests 07/15/24 14:27 VAISHALI Screen POSITIVE A VAISHALI Titer 1:80 H VAISHALI Pattern Nuclear, Speckled A SM/VALUE STREAM COACH IgG Antibody >8.0 POS A Complement C4 14 L Laboratory Tests 07/15/24 14:27 WBC 6.3 RBC 3.89 L Hgb 11.0 L Hct 33.2 L Plt Count 336 ESR 39 H Sodium 138 Potassium 3.4 Chloride 106 Carbon Dioxide 27 BUN 9 Creatinine 0.56 AST 23 ALT 11 C-Reactive Protein 0.26 25-OH Vitamin D Total 30 Assessment & Plan Assessment & Plan (1) Mixed connective tissue disease: Code(s): M35.1 - Other overlap syndromes Plan: #?MCTD Patient is a 64-year-old female presents today for urgent visit for evaluation of hand swelling and pain. While her ESR and CRP based on age and sex, her immunology results are concerning for mixed connective tissue disease with a low positive VAISHALI 1:80 and elevated VALUE STREAM COACH with low complement. This could potentially be mixed connective tissue disease however patient does not meet full classification criteria at this time. Given the concern from his connective tissue disease we started Hydroxychloroquine 200mg bid but patient did not tolerate and was lost to follow up or 7 months Plan - Will trial prednisone again - Prednisone: Take 15mg for 10 days then 10mg for 10 days then 5mg for 10 days and stop - Labs today: CBC, CMP, ESR, CRP - RTC 1 month (2) Fibromyalgia: Code(s): M79.7 - Fibromyalgia Category: Medical Plan: #Fibromyalgia Course c/b fibromyalgia Plan - Continue gabapentin Plan I spent 30 minutes reviewing the record and labs, taking a history, examining the patient, discussing the treatment plan, ordering diagnostic work up and documenting in the medical record Medications: New prednisone Take 3 tablets for 10 days then 2 tablets for 10 days then 1 tablet for 10 days then stop 5 mg PO DIRECTED 60 tabs 0RF M35.1 - Other overlap syndromes Coding Level of Care Code Est Pt Level 4 (57716) Complex EM visit Add On G2211 Diagnoses Mixed connective tissue disease M35.1 Fibromyalgia M79.7
[2025-03-19 15:46] VITALS: BP 100/60; PULSE 59; O2SAT 98; BMI 21.9
--- OUTSIDE RECORDS SUMMARY | 2025-03-19 19:02 | XMS_ITS | Clinical Summary ---
Author Organization [facility] Address [address] [place] [address] Phone Care Team Providers Care [employer] Name Role Phone Jody Payne MD Primary Care Provider [phone] Allergies No known active allergies Medications clotrimazole-be tamethasone (LOTRISONE) 1-0.05 % cream Apply twice a day on the rash for 10 days 4 Active ondansetron (ZOFRAN) 8 mg tablet Take 1 tablet (8 mg total) by mouth every 8 (eight) hours if needed for nausea or vomiting. 50 tablet 2 4 Active cholecalciferol (Vitamin D3) 50 mcg (2,000 unit) tablet Take 1 tablet (2,000 Units total) by mouth 1 (one) time each day. 90 tablet 2 5 Active ferrous sulfate 325 mg (65 mg iron) EC tablet Take 1 tablet (325 mg total) by mouth every other day. Do not crush, chew, or split. 45 each 2 5 Active pantoprazole (PROTONIX) 40 mg EC tablet Take 1 tablet (40 mg total) by mouth 1 (one) time each day. Do not crush, chew, or split. 30 each 1 5 06/26/19 26 Active ferrous sulfate 325 mg (65 mg iron) EC tablet Take 1 tablet (325 mg total) by mouth every other day. Do not crush, chew, or split. 45 each 2 5 Active polyethylene glycol (Golytely) 236-22.74-6.74 -5.86 [...] by the office 2 tablet 5 Active meclizine (ANTIVERT) 12.5 mg tablet Take 1 tablet (12.5 mg total) by mouth 2 (two) times a day. 30 tablet 5 Active ketoconazole (NIZORAL) 2 % cream Apply topically 2 (two) times a day. 30 g 2 5 Active ketoconazole (NIZORAL) 2 % shampoo Shampoo daily, leave on for 5-10 minutes, then rinse. 120 mL 5 11/20/19 26 Active gabapentin (NEURONTIN) 100 mg capsule Take 2 capsules (200 mg total) by mouth 2 (two) times a day. 120 capsule 1 5 Active levothyroxine (SYNTHROID, LEVOTHROID) 50 mcg tablet Take 1 tablet (50 mcg total) by mouth 1 (one) time each day. 90 each 11 5 Active cyanocobalamin 2,000 mcg ER tablet Take 1 tablet (2,000 mcg total) by mouth 1 (one) time per week. 12 tablet 2 5 Active cholecalciferol (Vitamin D3) 50 mcg (2,000 unit) tablet Take 1 tablet (2,000 Units total) by mouth 1 (one) time each day. 90 tablet 2 5 Active celecoxib (CeleBREX) 200 mg capsule Take 1 capsule (200 mg total) by mouth 1 (one) time each day. 30 each 5 5 08/09/19 26 Active PARoxetine (PAXIL) 20 mg tablet Take 1 tablet (20 mg total) by mouth 1 (one) time each day in the morning. 30 each 5 08/09/19 26 Active polyethylene glycol (Golytely) 236-22.74-6.74 -5.86 gram solution Take 4L by mouth once for one dose. May substitue any PEG. Starting at 2PM the day before your procedure drink 1 8oz glasses at your own pace until you complete half of the gallon. Finish 2nd half of the gallon at 8PM. 4000 mL 5 Active bisacodyL (DULCOLAX) 5 [...] Encounters Date Type Department Care Team Description 03/11/2025 3:15 PM EDT Office Visit [facility] Hematology Oncology [address] [place] [phone] Gerson Ruth MD Polyclonal gammopathy (Primary Dx) 02/17/2025 3:00 PM EDT Office Visit [facility] Hematology Oncology [address] [place] [address] Gerson Ruth MD IgG monoclonal gammopathy 02/10/2025 Telephone Internal Medicine [address] [phone] Jody Payne MD 02/09/2025 3:30 PM EDT Office Visit Internal Medicine [address] [phone] Jody Payne MD Hypothyroidism due to acquired atrophy of thyroid (Primary Dx); Anemia, unspecified type; IgG monoclonal gammopathy; Vitamin B12 deficiency; Arthritis 02/03/2025 [place] [address] [phone] Jody Payne MD 01/23/2025 [place] [place] [facility] [address] [phone] Jody Payne MD 01/09/2025 [facility] [address] [phone] Jody Payne MD 01/08/2025 2:20 PM EDT Office Visit Gastroenterology [address] [phone] Germán Hou MD Anemia, unspecified type (Primary Dx) 01/01/2025 [facility] [address] [phone] Jody Payne MD 12/24/2024 2:30 PM EDT Office Visit Internal Medicine [address] [phone] Jody Payne MD IgG monoclonal gammopathy (Primary Dx); Hypothyroidism due to acquired atrophy of thyroid; Vitamin B12 deficiency; Gastroesophageal reflux disease without esophagitis from Last 3 Months Immunizations Immunization Administration Dates Next Due Tdap Tetanus diptheria acell ular pertussis (Boostrix; Adacel) 7yo and older 06/12/2011 Surgical History Surgery Date Site/Laterality Comments KIDNEY STONE SURGERY 2010 PROCEDURE: [place] NEPHROLITHOTOMY REMOVAL CALCULUS LIPOMA RESECTION 2012 PROCEDURE: [...] Prostate cancer Brother 1 ? patient sa unsure of this - 03/06/2017 Diabetes Brother [...] = 0.6 oz pur e alcohol) Comments No Sex and Gender Information Value Date Recorded Sex Assigned at Not on file Legal Sex Female 5:01 AM EST Gender Identity Not on file Sexual Orientation Not on file Obstetrics History Para Term AB IAB SAB Ectopic Multiple Livin g Live Births 3 3 3 3 3 Date Outcome GA Total Labor Labor/2nd/3rd Weight Sex Type Anes PTL Lynnette A1 A5 Name Clin Term Term Term Last Filed Vital Signs Vital Sign Reading Time Taken Comments Blood Pressure 115/64 03/11/2025 3:15 PM EDT Pulse 55 03/11/2025 3:15 PM EDT Temperature 36.7 C (98.1 F) 03/11/2025 3:15 PM EDT Respiratory Rate 18 02/09/2025 3:29 PM EDT Oxygen Saturation 99% 03/11/2025 3:15 PM EDT Inhaled Oxygen Concentration - - Weight 48.1 kg (106 lb) 03/11/2025 3:15 PM EDT Height 149.9 cm (4' 11 ) 02/17/2025 2:57 PM EDT Body Mass Index 21.41 02/17/2025 2:57 PM EDT Plan of Treatment Upcoming Encounters Date Type Department Care Team (Late st Contact Info) Description 03/24/2025 3:00 PM EDT Hospital Encounter [facility] Endoscopy [address] [place] [phone] Germán Hou MD [address] [address] 03/31/2025 3:00 PM EDT Office Visit [facility] [place] 175 [facility] [address] [place] [phone] Ileana Martínez PA 175 [facility] [address] [place] [address] 06/26/2025 2:45 PM EST Office Visit Internal Medicine - [place] 175 [facility] [address] [place] [phone] Jody Payne MD 175 [facility] [address] [place] [phone] Health Maintenance Due Date Last Done Comments Cervical Cancer Screening: P ap Smear 1982 Pneumococcal Vaccine: 50+ Years (1 of 1 - PCV) 2011 Zoster Vaccines (1 of 2) 2011 DTaP,Tdap,and Td Vaccines (2 - Td or Tdap) 06/12/2021 06/12/2011 Colorectal Cancer Screening: Stool Based Tests (FOBT/FIT) 05/13/2022 HIV Screening 05/13/2022 Osteoporosis Screening (Bone Density Screening) 05/13/2022 Social Influencers of Health Screening 05/13/2022 Depression Screening 06/04/2024 02/22/2024 COVID-19 Vaccine (1 - 2023-2 5 season) 2025 Influenza Vaccine (#1) 2025 Breast Cancer Screening 11/10/2026 11/10/2024 Cholesterol Screening (Lipid Panel) 06/26/2029 06/26/2024, 05/21/2023 RSV Immunization Adult Patients (1 - 1-dose 75+ series) 2036 Hepatitis [...] age to complete this topic Meningococcal B Vaccine Aged Out No l onger eligible based on patient's age to complete this topic RSV Immunization Patients Under 20 months Aged Out No longer eligible b ased on patient's age to complete this topic Varicella Vaccines Aged Out No longer eligible based on patient's age to complete this topic Goals Goal Patient Goal Type Associated Problems Recent Progress Patient-Stated? Author Autogenera annette Goal Care Plan Autogenerated Problem No Maritza Blood Procedures Procedure Name Priority Date/Time Associated Diagnosis Comments AZ PROTEIN ELECTROPHORETIC FRACTIONATION & QUANTITATION SERUM Routine 02/17/2025 3:24 PM EDT IgG monoclonal gammopathy PROTEIN, TOTAL Routine 02/17/2025 3:24 PM EDT IgG monoclonal gammopathy CBC WITH AUTO DIFFERENTIAL Routine 02/17/2025 3:24 PM EDT IgG monoclonal gammopathy IMMUNOGLOBULINS IGG, IGA, IGM Routine 02/17/2025 3:24 PM EDT Monoclonal gammopathy PROTEIN ELECTROPHORESIS, SERUM Routine 02/17/2025 3:24 PM EDT IgG monoclonal gammopathy COMPREHENSIVE METABOLIC PANEL Routine 02/17/2025 3:24 PM EDT IgG monoclonal gammopathy CBC AND DIFFERENTIAL Routine 02/17/2025 3:24 PM EDT IgG monoclonal gammopathy CBC WITH AUTO DIFFERENTIAL Routine 02/09/2025 3:51 PM EDT Anemia, unspecified type THYROID STIMULATING HORMONE Routine 02/09/2025 3:51 PM EDT Hypothyroidism due to acquired atrophy of thyroid CBC AND DIFFERENTIAL Routine 02/09/2025 3:51 PM EDT Anemia, unspecified type MG MAMMO DIGITAL SCREENING W OK BILAT Routine 11/10/2024 4:44 PM EDT Breast cancer screening by mammogram LIPID PANEL WITH REFLEX TO DIRECT LDL Routine 06/26/2024 12:07 PM EST Anemia, unspecified type Hypothyroidism due to acquired atrophy of thyroid DEPRESSION SCREENING Routine 02/22/2024 HEPATITIS C SCREENING Routine 01/31/2018 from Last 3 Months or Most Recently Relevant to Health Maintenance Results * PATHOLOGIST REVIEW PROTEIN ELECTROPHORESIS (02/17/2025 3:24 PM EDT) Pathologist Interpretation Reviewed by Jill Mata MD 02/19/2025 3:07 PM EDT [facility] Blood Venous blood specimen / Unknown Venipuncture / Unknown 02/17/2025 3:24 PM EDT 02/17/2025 4:30 PM EDT us Gerson Ruth MD LAB BLOOD ORDERABLES Final R esult [facility] [address] [place] [address], [place] [phone] * (ABNORMAL) CBC auto differential (02/17/2025 3:24 PM EDT) Only the most recent of2 resultswithin the time period is included. WBC 7.1 4.8 - 10.8 K/mcL LAB HEMETOLOGY METHOD 02/17/2025 4:52 PM EDT [facility] RBC 3.70(L) 3.80 - 4.80 M/mcL LAB HEMETOLOGY METHOD 02/17/2025 4:52 PM EDT [facility] Hemoglobin 10.9(L) 11.5 - 16.0 g/dL LAB HEMETOLOGY METHOD 02/17/2025 4:52 PM EDT [facility] Hematocrit 33.3(L) 35.0 - 47.0 % LAB HEMETOLOGY METHOD 02/17/2025 4:52 PM EDT [facility] MCV 89.0 79.0 - 98.0 FL LAB HEMETOLOGY METHOD 02/17/2025 4:52 PM EDT [facility] MCH 29.1 27.0 - 32.0 pcg LAB HEMETOLOGY METHOD 02/17/2025 4:52 PM EDT [facility] MCHC 32.7 32.0 - 37.0 g/dL LAB HEMETOLOGY METHOD 02/17/2025 4:52 PM EDT [facility] RDW 13.7 11.0 - 15.0 % LAB HEMETOLOGY METHOD 02/17/2025 4:52 PM EDT [facility] Platelets 343 130 - 400 K/mcL LAB HEMETOLOGY METHOD 02/17/2025 4:52 PM EDT [facility] MPV 9.7 7.0 - 11.0 FL LAB HEMETOLOGY METHOD 02/17[facility]2025 4:[facility] NRBC 0.0 <1.0 % LAB HEMETOLOGY METHOD 02/17/2025 4:52 PM [facility] NRBC Absolute 0.00 <0.10 K/mcL LAB HEMETOLOGY METHOD 02/17/2025 4:52 PM [facility] Neutrophils Relative 60.7 % LAB HEMETOLOGY METHOD 02/17/2025 4:52 PM [facility] Lymphocytes Relative 29.4 % LAB HEMETOLOGY METHOD 02/17/2025 4:52 PM [facility] Monocytes Relative 9.0 % LAB HEMETOLOGY METHOD 02/17/2025 4:52 PM [facility] Eosinophils Relative 0.1 % LAB HEMETOLOGY METHOD 02/17/2025 4:52 PM [facility] Basophils Relative 0.7 % LAB HEMETOLOGY METHOD 02/17/2025 4:52 PM [facility] Immature Granulocytes Relative 0.1 % LAB HEMETOLOGY METHOD 02/17/2025 4:52 PM [facility] Neutrophils Absolute 4.32 1.50 - 7.00 K/mcL LAB HEMETOLOGY METHOD 02/17/2025 4:52 [facility] Lymphocytes Absolute 2.09 1.00 - 5.00 K/mcL LAB HEMETOLOGY METHOD 02/17/2025 4:[facility] Monocytes Absolute 0.64 0.20 - 1.00 K/mcL LAB HEMETOLOGY METHOD 02/17/2025 4:52 PM [facility] Eosinophils Absolute 0.01 0.00 - 0.50 K/mcL LAB HEMETOLOGY METHOD 02/17/2025 4:52 PM EDT [facility] Basophils Absolute 0.05 0.00 - 0.20 K/[facility] LAB HEMETOLOGY METHOD 02/17/2025 4:52 PM EDT [facility] Immature Granulocytes Absolute 0.01 0.00 - 0.03 K/[facility] LAB HEMETOLOGY METHOD 02/17/2025 4:52 PM EDT [facility] Blood Venous blood specimen / Unknown Venipuncture / Unknown 02/17/2025 3:24 PM EDT 02/17/2025 4:30 PM EDT us Gerson Ruth MD LAB BLOOD ORDERABLES Final R esult Performing Organization Address [facility]/ZIP Co de Phone Number [facility] [address] [place] [address], [place] [phone] * (ABNORMAL) Immunoglobulins IgG, IgA, IgM (02/17/2025 3:24 PM EDT) Total IgG 2,240(H) 549 - 1,584 mg/dL LAB CHEMISTRY METHOD 02/17/2025 5:11 PM EDT [facility] IgA <8(L) 61 - 348 mg/dL LAB CHEMISTRY METHOD 02/17/2025 5:11 PM EDT [facility] IgM 39 23 - 259 mg/dL LAB CHEMISTRY METHOD 02/17/2025 5:11 PM EDT [facility] Blood Venous blood specimen / Unknown Venipuncture / Unknown 02/17/2025 3:24 PM EDT 02/17/2025 4:30 PM EDT us Gerson Ruth MD LAB BLOOD ORDERABLES Final R esult Performing Organization Address City/[facility]/ZIP Co de Phone Number [facility] [address] [place] [address], [place] [phone] * (ABNORMAL) Protein electrophoresis, serum (02/17/2025 3:24 PM EDT) Total Protein 8.5(H) 6.0 - 8.0 g/dL LAB CHEMISTRY METHOD 5 3:07 PM EDT [facility] Albumin, Serum 3.9 2.9 - 4.1 g/dL LAB CHEMISTRY METHOD 5 3:07 PM EDT [facility] Alpha 1 Globulin (g/dL) 0.3 0.1 - 0.5 g/dL LAB CHEMISTRY METHOD 3:07 PM EDT [facility] Alpha 2 Globulin (g/dL) 1.1 0.7 - 1.5 g/dL LAB CHEMISTRY METHOD 5 3:07 PM EDT [facility] Beta (g/dL) 0.9 0.7 - 1.5 g/dL LAB CHEMISTRY METHOD 5 3:07 PM EDT [facility] Gamma Globulin (g/dL) 2.4(H) 0.7 - 1.9 g/dL LAB CHEMISTRY METHOD 5 3:07 PM EDT [facility] SPEP Interpretation No M-Veto seen. Hypergammaglobinemia Polyclonal. Pattern may be associated with chronic inflammation, chronic liver disease, autoimmune disease and immune globulin therapies. LAB CHEMISTRY METHOD 3:07 PM EDT [facility] Blood Venous blood specimen / Unknown Venipuncture / Unknown 02/17/2025 3:24 PM EDT 02/17/2025 4:30 PM EDT us Gerson Ruth MD LAB BLOOD ORDERABLES Final R esult [facility] [address] [place] [address], * (ABNORMAL) Protein, total (02/17/2025 3:24 PM EDT) [facility] Total Protein 8.5(H) 6.0 - 8.0 g/dL LAB CHEMISTRY METHOD 02/17/2025 5:04 PM EDT [facility] Blood Venous blood specimen / Unknown Venipuncture / Unknown 02/17/2025 3:24 PM EDT 02/17/2025 4:30 PM EDT Gerson Ruth MD LAB BLOOD ORDERABLES Final R esult [facility] [address] [place] [address], * (ABNORMAL) Comprehensive metabolic panel (02/17/2025 3:24 PM EDT) [facility] Sodium 138 133 - 145 mmol/L LAB CHEMISTRY METHOD 02/17/2025 5:10 PM [facility] Potassium 4.0 3.5 - 5.5 mmol/L LAB CHEMISTRY METHOD 02/17/2025 5:10 PM [facility] Chloride 103 96 - 110 mmol/L LAB CHEMISTRY METHOD 02/17/2025 5:10 PM [facility] CO2 29 21 - 32 mmol/L LAB CHEMISTRY METHOD 02/17/2025 5:10 PM [facility] Anion Gap 6 3 - 11 LAB CHEMISTRY METHOD 02/17/2025 5:10 PM [facility] Glucose 76 70 - 100 mg/dL LAB CHEMISTRY METHOD 02/17/2025 5:10 PM [facility] BUN 9 5 - 25 mg/dL LAB CHEMISTRY METHOD 02/17/2025 5:10 PM [facility] Creatinine 0.52 0.50 - 1.10 mg/dL LAB CHEMISTRY METHOD 02/17/2025 5:10 PM EDT [facility] eGFR 105 >=60 mL/min/1. 73m2 LAB CHEMISTRY METHOD 02/17/2025 5:10 PM EDT [facility] Comment:Calculation based on the Chronic Kidney Disease Epidemiology Collaboration (CKD-EPI) equation refit without adjustment for race. BUN/Creatinine Ratio 17.3 LAB CHEMISTRY METHOD 02/17/2025 5:10 PM EDT [facility] Calcium 9.4 8.5 - 10.5 mg/dL LAB CHEMISTRY METHOD 02/17/2025 5:10 PM EDT [facility] AST (SGOT) 22 10 - 42 unit/L LAB CHEMISTRY METHOD 02/17/2025 5:10 PM EDT [facility] ALT (SGPT) 19 10 - 60 unit/L LAB CHEMISTRY METHOD 02/17/2025 5:10 PM EDT [facility] Alkaline Phosphatase 67 42 - 121 unit/L LAB CHEMISTRY METHOD 02/17/2025 5:10 PM EDT [facility] Total Protein 8.5(H) 6.0 - 8.0 g/dL LAB CHEMISTRY METHOD 02/17/2025 5:10 PM EDT [facility] Albumin 4.1 3.2 - 5.0 g/dL LAB CHEMISTRY METHOD 02/17/2025 5:10 PM EDT [facility] Total Bilirubin 0.4 0.0 - 1.4 mg/dL LAB CHEMISTRY METHOD 02/17/2025 5:10 PM EDT [facility] Blood Venous blood specimen / Unknown Venipuncture / Unknown 02/17/2025 3:24 PM EDT 02/17/2025 4:30 PM EDT us Gerson Ruth MD LAB BLOOD ORDERABLES Final R esult [facility] [address] [place] [address], * Thyroid stimulating hormone (02/09/2025 3:51 PM EDT) TSH 0.65 0.40 - 4.00 mcIU/mL LAB CHEMISTRY METHOD 02/09/2025 6:50 PM EDT [facility] Blood Venous blood specimen / Unknown Venipuncture / Unknown 02/09/2025 3:51 PM EDT 02/09/2025 3:51 PM EDT us Jody Payne MD LAB BLOOD ORDERABLES Final Res ult [facility] [address] [place] [address], [place] [phone] * MG Mammo Digital Screening w Ok bilat (11/10/2024 4:44 PM EDT) Anatomical Region Laterality Modality Breast Bilateral Mammography 11/11/2024 3:10 PM EDT Impressions 11/11/2024 3:12 PM EDT 1. No mammographic evidence of malignancy 2. Scattered fibroglandular tissue BI-RADS CATEGORY: 2 - BENIGN RECOMMENDATION: Screening bilateral mammogram is recommended in 1 year. Mammo Location: [facility], [address] [place] [address], [id number], . -------- FINAL REPORT -------- Dictated By: Mateo Harris Dictated Date: 11/11/2024 15:10 ET Assigned Physician: Mateo Harris Reviewed and Electronically Signed By: Mateo Harris Signed Date: 11/11/2024 15:12 ET Workstation ID: [id number] Transcribed By: Self Edit Transcribed Date: 11/11/2024 15:10 ET Narrative 11/11/2024 3:12 PM EDT A BILATERAL DIGITAL 3D SCREENING MAMMOGRAPHY HISTORY: Routine screening. COMPARISON: Multiple priors dating back to 02/18/2013 Technique: Bilateral full field digital mammography (3D) was performed using standard CC and MLO projections , bilateral exaggerated cc views CAD was used to evaluate this mammogram. FINDINGS: Right: No suspicious masses, groups of microcalcification or areas of architectural distortion identified. Stable typically benign parenchymal asymmetries. Left: No suspicious masses, groups of microcalcification or areas of architectural distortion identified. Stable typically benign parenchymal asymmetries. BREAST DENSITY: B - There are scattered areas of fibroglandular density. Procedure Note Mateo Harris MD - 11/11/2024 A BILATERAL DIGITAL 3D SCREENING MAMMOGRAPHY HISTORY: Routine screening. COMPARISON: Multiple priors dating back to 02/18/2013 Technique: Bilateral full field digital mammography (3D) was performedusing standard CC and MLO projections , bilateral exaggerated cc views CAD was used to evaluate this mammogram. FINDINGS: Right: No suspicious masses, groups of microcalcification or areas ofarchitectural distortion identified. Stable typically benign parenchymalasymmetries. Left: No suspicious masses, groups of microcalcification or areas ofarchitectural distortion identified. Stable typically benign parenchymalasymmetries. BREAST DENSITY: B - There are scattered areas of fibroglandular density. IMPRESSION: 1. No mammographic evidence of malignancy 2. Scattered fibroglandular tissue BI-RADS CATEGORY: 2 - BENIGN RECOMMENDATION: Screening bilateral mammogram is recommended in 1 year. Mammo Location: [facility], [address] [place] [address], [id number], . -------- FINAL REPORT -------- Dictated By: Mateo Harris Dictated Date: 11/11/2024 15:10 ET Assigned Physician: Mateo Harris Reviewed and Electronically Signed By: Mateo Harris Signed Date: 11/11/2024 15:12 ET Workstation ID: [id number] Transcribed By: Self Edit Transcribed Date: 11/11/2024 15:10 ET us Jody Payne MD IM BI PROCEDURES Final Result * (ABNORMAL) Lipid panel with reflex to direct LDL (06/26/2024 12:07 PM EST) Cholesterol 174 0 - 200 mg/dL LAB CHEMISTRY METHOD 06/26/2024 3:14 PM EST [facility] Triglycerides 126 0 - 150 mg/dL LAB CHEMISTRY METHOD 06/26/2024 3:14 PM EST [facility] HDL 44 >=40 mg/dL LAB CHEMISTRY METHOD 06/26/2024 3:14 PM [facility] LDL Calculated 105(H) 0 - 100 mg/dL LAB CHEMISTRY METHOD 06/26/2024 3:14 PM EST [facility] VLDL Cholesterol Benja 25.2 mg/dL LAB CHEMISTRY METHOD 06/26/2024 3:14 PM EST [facility] Non HDL Chol. (LDL+VLDL) 130 <145 mg/dL LAB CHEMISTRY METHOD 06/26/2024 3:14 PM [facility] Chol/HDL Ratio 4.0 0.0 - 4.4 LAB CHEMISTRY METHOD 06/26/2024 3:14 PM [facility] Blood Venous blood specimen / Unknown Venipuncture / Unknown 06/26/2024 12:07 PM EST 06/26/2024 12:07 PM EST Jody Payne MD LAB BLOOD ORDERABLES Final Res ult [facility] [address] [place] [address], * Depression Screening (02/22/2024) Depression Screening abstracted Historical Provider HEALTH MAINTENANCE Final Result * Hepatitis C Screening (01/31/2018) Hepatitis C Screening abstracted Historical Provider HEALTH MAINTENANCE Final Result from Last 3 Months or Most Recently Relevant to Health Maintenance Additional Health Concerns Active Problems Noted Date Diagnosed Date Autogenerated Problem 03/02/2025 Insurance [facility] Care Teams [employer] Relationship Specialty Start Date End Date Jody Payne MD 175 [facility] [address] [place] [address] PCP - General 03/11/24
--- OUTSIDE RECORDS SUMMARY | 2025-03-19 19:02 | XMS_ITS | Clinical Summary ---
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
--- OUTSIDE RECORDS SUMMARY | 2025-03-19 19:03 | XMS_ITS | Clinical Summary ---
Author Organization [facility] Address [address] [facility] [address] [facility] [address] [place] [phone] Phone Care Team Providers Care Powder Truck Driver Name Role Phone Pcp, Unknown Primary Care Provider Unavailabl e Allergies No known active allergies Medications meloxicam (MOBIC) 7.5 MG tablet Take 1 tablet by mouth daily as needed. 3 Active diphenhydrAMINE cream Apply 1 Act topically 3 (three) times a day as needed. 3 Active gabapentin (NEURONTIN) 100 MG capsule Take 2 capsules by mouth 2 (two) times a day as needed. 3 Active levothyroxine (SYNTHROID, LEVOTHROID) 75 MCG tablet Take 1 tablet by mouth daily. 3 Active Family History Medical History Relation Comments Prostate cancer Brother Heart attack Father ?CABG Cancer Mother Stroke Mother Rheumatoid arthritis Sister 1 Cancer Sister 2 Lupus Sister 2 Relation Status Comments Brother Father Mother Sister 1 Sister 2 Social History Tobacco Use Types Packs/Day Years Used Date Smoking Tobacco: Never Assessed Education Answer Date Recorded Are you interested in more education? Not on francesca e 05/21/2023 Are you concerned about learning? Not on file 05/21/2023 No 05/21/2023 No 05/21/2023 Digital Access Answer Date Recorded No 05/21/2023 No 05/21/2023 Reliable internet access at home? Not on file 05/21/2023 Device with a working camera? Not on file Comments Unknown Sex and Gender Information Value Date Recorded Sex Assigned at Not on file Legal Sex Female 11:58 AM EST Gender Identity Not on file Sexual Orientation Not on file Plan of Treatment Health Maintenance Due Date Last Done Comments TSH LEVEL 1961 DEPRESSION SCREENING 1973 SMOKING Hx and SMOKELESS TOB ACCO SCREENING 1974 HEPATITIS C SCREENING 1979 HIV ONE-TIME SCREENING (18-6 5 YEARS) 1979 PAP SMEAR 1982 MAMMOGRAM 2001 COLOGUARD 2006 COLONOSCOPY 2006 COLORECTAL CANCER SCREENING 2006 FIT TEST 2006 FOBT 2006 SIGMOIDOSCOPY 2006 VIRTUAL COLONOSCOPY 2006 PNEUMOCOCCAL VACCINES (50+ y ears) (1 of 1 - PCV) 2011 ZOSTER VACCINES (1 of 2) 2011 Adult Td,Tdap Booster 06/12/2021 06/12/2011 INFLUENZA VACCINE (#1) 2025 COVID-19 VACCINE (1 - 2024-2 6 season) 2025 LIPID PANEL 05/21/2028 05/21/2023 RSV VACCINE (1 - 1-dose 75+ series) 2036 HEPATITIS A VACCINES Aged Out No long er eligible based on patient's age to complete this topic HIB VACCINES Aged Out No longer eligi ble based on patient's age to complete this topic MENINGOCOCCAL VACCINES (ACWY) Aged Out No longer eligible based on patient's age to complete this topic MENINGOCOCCAL VACCINES (B) Aged Out N o longer eligible based on patient's age to complete this topic Medical Devices Not on file Insurance [facility] [place] [address] [place] [address] [place] [address] [place] [address] [facility] [employer] [facility] [employer] Care Teams Powder Truck Driver Relationship Specialty Start Date End Date Pcp, Unknown PCP - General 05/08/23 Additional Source Comments The information contained in this document represents components of the legal health record. It is not the complete legal health record.[facility]
== END 2025-03-19 16:17 | disposition home or self-care (01) ==
LOC: HO.RHES 15:12
PROVIDERS: PCP Internal Medicine; Visit Provider Student in an Organized Health Care Education/Training Program
DX: M35.1 Other overlap syndromes (principal); M79.7 Fibromyalgia
CPT/HCPCS: 99214

== ENCOUNTER → 2025-03-19 15:11 | Outpatient (BNVA) | payer OTHER, SELFPAY | PROVIDERS: PCP Internal Medicine; Visit Provider Student in an Organized Health Care Education/Training Program | DX: M35.1 Other overlap syndromes (principal); M79.7 Fibromyalgia | CPT/HCPCS: 99212 ==

== ENCOUNTER 2025-04-07 13:17 | Outpatient (REF) | payer OTHER, SELFPAY ==
--- OUTSIDE RECORDS SUMMARY | 2025-04-07 16:14 | XMS_ITS | Clinical Summary ---
Author Organization [facility] Address [address] [place] [address] Care Team Providers Care Steersman Name Role Phone Dinah Man Primary Care [...] age to complete this topic Care Teams Steersman Relationship Specialty Start Date End Date Dinah Man PCP - General Internal Medicine 12/21/20
--- OUTSIDE RECORDS SUMMARY | 2025-04-07 16:14 | XMS_ITS | Clinical Summary ---
Author Organization [facility] Address [address] [facility] [address] [place] [phone] Phone Care Team Providers Care Cage Clerk Name Role Phone Pcp, Unknown Primary Care [...] topic Medical Devices Not on file Insurance [facility] [place] [address] [place] [address] [place] [address] [place] [address] ACO [facility] ACO [facility] [employer]CO [facility] [employer] Care Teams Cage Clerk Relationship Specialty Start Date End Date Pcp, Unknown PCP - General 05/08/23 Additional Source Comments The information contained in this document represents components of the legal health record. It is not the complete legal health record.[facility]
[2025-04-07 17:54] LABS: MANUAL DIFF FLAG NO
[2025-04-07 18:11] LABS: Hematocrit 36.4 % (37.0-47.0); Hemoglobin 12.1 g/dl (12.0-16.0); Imm Gran Abs Auto 0.03 X10*3/uL (0.00-0.03); Imm Gran Pct Auto 0.4 % (0.0-0.4); Lymphocytes Absolute Auto 2.5 X10*3/uL (1.2-4.9); Mean Corpuscular HGB Conc 33.2 g/dl (31.0-35.0); Mean Corpuscular Hemoglobin 29.5 pg (27.0-33.0); Mean Corpuscular Volume 88.8 fL (80.0-98.0); NRBC Abs Auto 0.000 X10*3/uL (0.0-0.012); NRBC Pct Auto 0.0 /100WBC (0.0-0.2); Platelet Count 362 X10*3/uL (160-400); Red Blood Count 4.10 X10*6/uL (4.20-5.50); White Blood Count 7.3 X10*3/uL (4.8-10.8)
[2025-04-07 18:29] LABS: Alanine Aminotransferase 21 U/L (0-31); Albumin Level 5.0 g/dL (3.5-5.0); Alkaline Phosphatase 67 U/L (39-117); Anion Gap 12 (12-20); Aspartate Amino Transferase 32 U/L (5-31); Blood Urea Nitrogen 9 mg/dL (9-16); Calcium 9.6 mg/dL (8.4-10.2); Carbon Dioxide 27 mmol/L (22-29); Chloride 103 mmol/L (96-108); Estimated Glomerular Filt Rate > 60; Potassium 3.7 mmol/L (3.3-5.1); Sodium 138 mmol/L (135-145); Total Protein 9.3 g/dL (6.5-8.0)
== END 2025-04-07 13:18 | disposition home or self-care (01) ==
LOC: HO.HKASLDS 13:17
PROVIDERS: PCP Internal Medicine; Visit Provider Student in an Organized Health Care Education/Training Program
DX: M79.7 Fibromyalgia (principal)
CPT/HCPCS: 36415; 80053; 85025; 85652; 86140